=== PATIENT | female | born 1995 | race Caucasian/White ===

== ENCOUNTER → 2017-10-07 15:42 | Outpatient (REF) | payer OTHER, SELFPAY | LOC: LAB 15:42 | PROVIDERS: Visit Provider Nurse Practitioner Family | DX: R10.9 Unspecified abdominal pain (principal) | CPT/HCPCS: 87086 ==

== ENCOUNTER 2017-10-08 05:23 | Emergency (ER) | payer OTHER, SELFPAY ==
[2017-10-08 05:31] VITALS: BP 133/78; PULSE 113; RESP 20; TEMP 36.6; O2SAT 97; BMI 34.7
--- NOTE | 2017-10-08 05:42 | XR_ITS ---
XR hand LT min 3V HISTORY: Posttraumatic pain ITS.REASON: S/P FALL ORDERING PHYSICIAN: Cooper Donato MD PATIENT AGE: 22 years COMPARISON: 06/13/2012 FINDINGS: There are 2 screws present in the mid to distal aspect of the proximal phalanx of the fifth finger from an old fracture. No acute fracture or dislocation evident. IMPRESSION: No acute fracture. Prior ORIF fifth finger
--- NOTE | 2017-10-08 06:24 | HMH.EDGENADL ---
ED Disposition Clinical Impression: Contusion of left hand Qualifiers: Encounter type: initial encounter Qualified Code(s): S60.222A - Contusion of left hand, initial encounter Disposition: Home, Self-Care Condition on Discharge: Good Instructions: DI for Hand Injury Additional Instructions: advil/tyenol and ice and follow up with pcp Referrals: Corina Piper APRN [Primary Care Provider] - - Critical Care Critical Care Time: No Attestation: On 10/08/17, the high probability of a clinically significant, sudden or life threatening deterioration of the following system(s) required my full and direct attention, intervention and personal management. The time I documented below is in addition to time spent performing reported procedures but includes the following listed in this critical care notation. Medical Decision Making - Medical Records Medical records reviewed: Yes: I reviewed the patient's medical records. Vital Signs: 10/08/17 05:31 Temperature 97.9 F Temperature Source Oral Pulse Rate [Right Brachial] 113 H Respiratory Rate 20 Blood Pressure [Right Arm] 133/78 Blood Pressure Mean [Right Arm] 96 Blood Pressure Source [Right Arm] Automatic Cuff Blood Pressure Position [Right Arm] Sitting 02 Sat by Pulse Oximetry 97 Oxygen Delivery Method Room Air Orders (Tests/Meds): ED MEDICATIONS Discontinued Medications Generic Name Dose Route Start Last Admin Trade Name Freq PRN Reason Stop Dose Admin Ibuprofen 600 mg 10/08/17 05:42 10/08/17 05:44 Motrin 600mg Tablet PO 10/08/17 05:43 600 mg ONCE ONE Administration - Radiology Data #1 Image(s): Hand Image Reviewed: Yes I reviewed the patient's radiology image Preliminary Findings: No Fracture Seen - Rajesh Inquiry Pt receiving controlled substance: No General Adult HPI - General Chief complaint: PAIN Stated complaint: A/O pinky lft hand Time Seen by Provider: 10/08/17 06:25 Mode of Arrival: Family Vehicle Source of Information: Patient, Medical Record Limitations: No Limitations Description of Symptoms (Recalled from ER Triage Doc. by RN): S/P FALL C/O LEFT HAND PAIN. HX FX LEFT PINKY FINGER WITH PLATE AND SCREWS INSERTED - History of Present Illness HPI narrative: trip type fall and injured lt hand with hx of prev orif of lt fifth finger Onset (ago): hour(s) Location: upper extremity Severity: moderate - Related Data Home Medications Medication Instructions Recorded Confirmed No Known Home Medications [No 10/07/17 10/08/17 Known Home Medications] Allergies Allergy/AdvReac Type Severity Reaction Status Date / Time amoxicillin [AMOXICILLIN] Allergy Intermediate I-HIVES Verified 10/07/17 15:38 [facility] History I have reviewed the patient's past medical history: Yes Medical History: Denies:: Cancer, Diabetes Mellitus Type 1, Diabetes Mellitus Type 2, MRSA Laterality Cases: Left: Other Amputation: No Fractures: Yes (LEFT PINKY FINGER) - *Social History Educational Level: Completed High School Smoking Status: Never smoker Alcohol Intake: never - Psychiatric History Expresses thoughts of harming self/others: None Suicide Plan Description: No Plan ROS Obtained: Yes All systems reviewed & no additional complaints - Constitutional Constitutional: Denies fever(s) - Eyes Eyes: Denies change in vision - ENT Ears, Nose, Mouth, and Throat: Denies sore throat - Cardiovascular Cardiovascular: Denies chest pain at rest - Respiratory Respiratory: No cough - Gastrointestinal Gastrointestingal: Denies: abdominal pain - Musculoskeletal Musculoskeletal: Reports joint pain, Reports joint swelling - Integumentary/Breasts Skin/Breast: Denies rash - Neurologic Neurologic: Denies seizure-like activity Physical Exam - General General appearance: alert, in no apparent distress - Head Head exam: atraumatic - Eye Eye exam: Present: PERRL, EOMI - ENT ENT exam: Prese
--- NOTE | 2017-10-08 06:28 | ED_ITS ---
ED Disposition Clinical Impression: Contusion of left hand Qualifiers: Encounter type: initial encounter Qualified Code(s): S60.222A - Contusion of left hand, initial encounter Disposition: Home, Self-Care Condition on Discharge: Good Instructions: DI for Hand Injury Additional Instructions: advil/tyenol and ice and follow up with pcp Referrals: Corina Piper APRN [Primary Care Provider] - - Critical Care Critical Care Time: No Attestation: On 10/08/17, the high probability of a clinically significant, sudden or life threatening deterioration of the following system(s) required my full and direct attention, intervention and personal management. The time I documented below is in addition to time spent performing reported procedures but includes the following listed in this critical care notation. Medical Decision Making - Medical Records Medical records reviewed: Yes: I reviewed the patient's medical records. Vital Signs: 10/08/17 05:31 Temperature 97.9 F Temperature Source Oral Pulse Rate [Right Brachial] 113 H Respiratory Rate 20 Blood Pressure [Right Arm] 133/78 Blood Pressure Mean [Right Arm] 96 Blood Pressure Source [Right Arm] Automatic Cuff Blood Pressure Position [Right Arm] Sitting 02 Sat by Pulse Oximetry 97 Oxygen Delivery Method Room Air Orders (Tests/Meds): ED MEDICATIONS Discontinued Medications Generic Name Dose Route Start Last Admin Trade Name Freq PRN Reason Stop Dose Admin Ibuprofen 600 mg 10/08/17 05:42 10/08/17 05:44 Motrin 600mg Tablet PO 10/08/17 05:43 600 mg ONCE ONE Administration - Radiology Data #1 Image(s): Hand Image Reviewed: Yes I reviewed the patient's radiology image Preliminary Findings: No Fracture Seen - Rajesh Inquiry Pt receiving controlled substance: No General Adult HPI - General Chief complaint: PAIN Stated complaint: A/O pinky lft hand Time Seen by Provider: 10/08/17 06:25 Mode of Arrival: Family Vehicle Source of Information: Patient, Medical Record Limitations: No Limitations Description of Symptoms (Recalled from ER Triage Doc. by RN): S/P FALL C/O LEFT HAND PAIN. HX FX LEFT PINKY FINGER WITH PLATE AND SCREWS INSERTED - History of Present Illness HPI narrative: trip type fall and injured lt hand with hx of prev orif of lt fifth finger Onset (ago): hour(s) Location: upper extremity Severity: moderate - Related Data Home Medications Medication Instructions Recorded Confirmed No Known Home Medications [No 10/07/17 10/08/17 Known Home Medications] Allergies Allergy/AdvReac Type Severity Reaction Status Date / Time amoxicillin [AMOXICILLIN] Allergy Intermediate I-HIVES Verified 10/07/17 15:38 [facility] History I have reviewed the patient's past medical history: Yes Medical History: Denies:: Cancer, Diabetes Mellitus Type 1, Diabetes Mellitus Type 2, MRSA Laterality Cases: Left: Other Amputation: No Fractures: Yes (LEFT PINKY FINGER) - *Social History Educational Level: Completed High School Smoking Status: Never smoker Alcohol Intake: never - Psychiatric History Expresses thoughts of harming self/others: None Suicide Plan Description: No Plan ROS Obtained: Yes All systems reviewed & no additiona
[2017-10-08 06:55] VITALS: BP 132/65; PULSE 99; RESP 18; O2SAT 97
== END 2017-10-08 06:57 | disposition home or self-care (01) ==
PROVIDERS: Emergency Provider Emergency Medicine; Family Provider Nurse Practitioner Family; PCP Nurse Practitioner Family
DX: S60.222A Contusion of left hand, initial encounter (principal); Z88.1 Allergy status to other antibiotic agents; W01.0XXA Fall on same level from slipping, tripping and stumbling without subsequent striking against object, initial encounter; Y92.019 Unspecified place in single-family (private) house as the place of occurrence of the external cause
CPT/HCPCS: 73130; 99282

== ENCOUNTER → 2017-11-22 15:23 | Outpatient (CLI) | payer OTHER, SELFPAY ==
--- NOTE | 2017-11-22 15:24 | XR_ITS ---
XR foot LT min 3V Ordering Physician: Nena Figueroa DPM Patient Age: 22 years: Female HISTORY: Bilateral foot pain TECHNIQUE Left foot [3 views standing weightbearing COMPARISON: Right foot from today a left great toe from 03/29/2016 LEFT FOOT 3 VIEWS STANDING COMPARISON: None FINDINGS: Weightbearing views are performed. - , little if any hallux valgus on left. It. The first metatarsal phalangeal angle of 17 degrees. . The subtle minor hallux valgus slight more evident on the right than left . There is mild pes planus with aMearys angle of negative ~on sagittal images. No fracture or dislocation. No lytic or blastic change. There is normal mineralization.. The joint spaces are well-preserved. No significant degenerative/arthritic changes. No erosive changes evident. IMPRESSION:======== Mild pes planus Borderline hallux valgus left
--- NOTE | 2017-11-22 15:24 | XR_ITS ---
XR foot RT min 3V HISTORY: Bilateral foot pain, right foot pain ORDERING PHYSICIAN: Nena Figueroa DPM PATIENT AGE: 22 years COMPARISON: None FINDINGS: Weightbearing views are performed. There is mild hallux valgus with first metatarsophalangeal angle of 22 degrees. There is mild pes planus with a Mearys angle of negative 12 degrees No fracture or dislocation. No lytic or blastic change. There is normal mineralization.. The joint spaces are well-preserved. No significant degenerative/arthritic changes. No erosive changes evident. IMPRESSION: Mild pes planus and hallux valgus
== END ==
PROVIDERS: Visit Provider Podiatrist
DX: B35.1 Tinea unguium (principal)
CPT/HCPCS: 73630; 87102; 87206; 87220

== ENCOUNTER → 2017-11-26 16:52 | Outpatient (CLI) | payer OTHER, SELFPAY ==
[2017-11-28 11:08] LABS: Hep A Ab, IgM Negative (Negative); Hepatitis B Core Antibody IgM Negative (Negative); Hepatitis B Surface Antigen Negative (Negative)
[2017-11-28 18:50] LABS: Hepatitis C Antibody <0.1 s/co ratio (0.0-0.9)
== END ==
PROVIDERS: Visit Provider Emergency Medicine
DX: Z20.5 Contact with and (suspected) exposure to viral hepatitis (principal)
CPT/HCPCS: 80074

== ENCOUNTER 2017-12-13 10:30 | Emergency (ER) | payer OTHER, SELFPAY ==
[2017-12-13 10:40] VITALS: BP 121/73; PULSE 107; RESP 20; TEMP 36.9; O2SAT 97; BMI 32.9
--- NOTE | 2017-12-13 11:16 | HMH.EDUTC ---
[facility] Disposition Clinical Impression: Viral gastroenteritis Disposition: Home, Self-Care Condition on Discharge: Good Instructions: DI for Viral Gastroenteritis -- Adult Additional Instructions: * Monitor Temp. Seek treatment if fever develops. * Follow up immediately for new or worsening symptoms OR no noticeable improvement over the next 48 hours. * Increase fluids. Water, gatorade, powerade, juice OR pedialyte with limited formula/dairy in children. * No food is ok as long as you or your child is drinking. Once ready to eat, start bland. bananas, rice, applesauce, toast * Probiotics if frequent diarrhea present may help. These are over the counter. * Contagious until no diarrhea, vomiting, fever x 24 hours without medication * Avoid anti-diarrheals unless told otherwise. Best to let the virus run its course. * phenergan every 6-8 hours as needed for nausea/vomiting. REMEMBER you had a shot of this here in clinic so DO NOT repeat too soon Prescriptions: Promethazine HCl [Phenergan 25mg tab] 25 mg PO Q6H PRN #10 tab PRN Reason: Nausea And Vomiting Referrals: Corina Piper APRN [Primary Care Provider] - (Follow up IMMEDIATELY for new or worsening symptoms OR no noticeable improvement over the next 48 hours.) Forms: Work/School Release Time of Disposition: 12:29 Medical Decision Making - Rajesh Inquiry Pt receiving controlled substance: No Vital Signs: 12/13/17 10:40 Temperature 98.5 F Temperature Source Oral Pulse Rate [Right Brachial] 107 H Respiratory Rate 20 Blood Pressure [Right Arm] 121/73 Blood Pressure Mean [Right Arm] 89 Blood Pressure Source [Right Arm] Automatic Cuff Blood Pressure Position [Right Arm] Sitting 02 Sat by Pulse Oximetry 97 Oxygen Delivery Method Room Air - Lab Data Lab Results 12/13/17 11:26: [facility] Negative 12/13/17 11:37: Urine Color Yellow, Urine Appearance Clear, Urine pH 5.0, Ur Specific [place] 1.030, Urine Protein Trace, Urine Glucose (UA) Negative, Urine Ketones Negative, Urine Blood Negative, Urine Nitrate Negative, Urine Bilirubin Negative, Urine Urobilinogen 0.2, Ur Leukocyte Esterase Negative Orders (Tests/Meds): ED MEDICATIONS Discontinued Medications Generic Name Dose Route Start Last Admin Trade Name Freq PRN Reason Stop Dose Admin Ondansetron HCl 4 mg 04/02/18 11:30 12/13/17 11:34 Zofran 4mg/2ml Vial IM 12/13/17 11:31 4 mg ONCE ONE Administration Promethazine HCl 25 mg 12/13/17 12:04 12/13/17 12:09 Phenergan 25mg/Ml 1ml Vial IM 12/13/17 12:05 25 mg ONCE ONE Administration - Reevaluation(s) Time: 12:03 Reevaluation #1: Zofran hasn't helped. Actively vomiting. Mother in waiting room. Agrees to sign pt out and drive her home. Discussed promethazine. Pt agreeable. 1226: Feeling better since promethazine. No longer vomiting. Nausea improved. Tolerating fluids. Rvwd POC again and agrees to FU if no improvement. [facility] HPI - General Stated complaint: vomiting,diarrhea Time Seen by Provider: 12/13/17 10:55 Mode of Arrival: Family Vehicle Source of Information: Patient Limitations: No Limitations Description of Symptoms (Recalled from Triage Doc. by RN): C/O N/V/D HEENT Symptoms (Recalled from RN notes): No Resp Symptoms (Recalled from RN notes): No Skin Symptoms (Recalled from RN notes): No MS Symptoms (Recalled from RN notes): No Functional Status (Recalled from RN notes): N/A - History of Present Illness Provider Complaint: c/o fever, vomiting and diarrhea since yesterday. Fever 100 at work this morning. Was sent home. Reports has vomited 3 times today. No blood or coffee ground like appearance. Diarrhea approx 6 times. Watery. No blood and not black/tarry. Hasn't taken or tried anything for symptoms. Reports several residence w/ similar symptoms. - Related Data Previous Rx's Medication Instructions Recorded ciclopirox 0.77 % topical gel 1 applic TOPICAL BID 28 Days #30 g 11/22/17 P
--- NOTE | 2017-12-13 11:26 | ED_ITS ---
[facility] [place] Disposition Clinical Impression: Viral gastroenteritis Disposition: Home, Self-Care Condition on Discharge: Good Instructions: DI for Viral Gastroenteritis -- Adult Additional Instructions: * Monitor Temp. Seek treatment if fever develops. * Follow up immediately for new or worsening symptoms OR no noticeable improvement over the next 48 hours. * Increase fluids. Water, gatorade, powerade, juice OR pedialyte with limited formula/dairy in children. * No food is ok as long as you or your child is drinking. Once ready to eat, start bland. bananas, rice, applesauce, toast * Probiotics if frequent diarrhea present may help. These are over the counter. * Contagious until no diarrhea, vomiting, fever x 24 hours without medication * Avoid anti-diarrheals unless told otherwise. Best to let the virus run its course. * phenergan every 6-8 hours as needed for nausea/vomiting. REMEMBER you had a shot of this here in clinic so DO NOT repeat too soon Prescriptions: Promethazine HCl [Phenergan 25mg tab] 25 mg PO Q6H PRN #10 tab PRN Reason: Nausea And Vomiting Referrals: Corina Piper APRN [Primary Care Provider] - (Follow up IMMEDIATELY for new or worsening symptoms OR no noticeable improvement over the next 48 hours.) Forms: Work/School Release Time of Disposition: 12:29 Medical Decision Making - Rajesh Inquiry Pt receiving controlled substance: No Vital Signs: 12/13/17 10:40 Temperature 98.5 F Temperature Source Oral Pulse Rate [Right Brachial] 107 H Respiratory Rate 20 Blood Pressure [Right Arm] 121/73 Blood Pressure Mean [Right Arm] 89 Blood Pressure Source [Right Arm] Automatic Cuff Blood Pressure Position [Right Arm] Sitting 02 Sat by Pulse Oximetry 97 Oxygen Delivery Method Room Air - Lab Data Lab Results 12/13/17 11:26: [facility] Negative 12/13/17 11:37: Urine Color Yellow, Urine Appearance Clear, Urine pH 5.0, Ur Specific [place] 1.030, Urine Protein Trace, Urine Glucose (UA) Negative, Urine Ketones Negative, Urine Blood Negative, Urine Nitrate Negative, Urine Bilirubin Negative, Urine Urobilinogen 0.2, Ur Leukocyte Esterase Negative Orders (Tests/Meds): ED MEDICATIONS Discontinued Medications Generic Name Dose Route Start Last Admin Trade Name Freq PRN Reason Stop Dose Admin Ondansetron HCl 4 mg 04/02/18 11:30 12/13/17 11:34 Zofran 4mg/2ml Vial IM 12/13/17 11:31 4 mg ONCE ONE Administration Promethazine HCl 25 mg 12/13/17 12:04 12/13/17 12:09 Phenergan 25mg/Ml 1ml Vial IM 12/13/17 12:05 25 mg ONCE ONE Administration - Reevaluation(s) Time: 12:03 Reevaluation #1: Zofran hasn't helped. Actively vomiting. Mother in waiting room. Agrees to sign pt out and drive her home. Discussed promethazine. Pt agreeable. 1226: Feeling better since promethazine. No longer vomiting. Nausea improved. Tolerating fluids. Rvwd POC again and agrees to FU if no improvement. [facility] HPI - General Stated complaint: vomiting,diarrhea Time Seen by Provider: 12/13/17 10:55 Mode of Arrival: Family Vehicle Source of Information: Patient Limitations: No Limitations Description of Symptoms (Recalled from Triage Doc. by RN): C/O N/V/D HEENT Symptoms (Recalled from RN notes): No Resp Symptoms (Recalled from RN notes): No Skin Symptoms (Recalled from RN notes): No MS Symptoms (Recalled from RN notes): No
[2017-12-13 11:35] LABS: UTC Pregnancy Test, Urine Negative (Negative)
[2017-12-13 11:38] LABS: Apearance,Urine Clear (Clear); Bilirubin,Urine Negative (Negative); Blood, Urine Negative (Negative); Color,Urine Yellow (Yellow); Glucose,Urine (UA) Negative (Negative); Ketones,Urine Negative (Negative); Protein,Urine Trace (Negative); UTC Leukocyte Esterase,Urine Negative (Negative); UTC Nitrate,Urine Negative (Negative); Urobilinogen,Urine 0.2 EU/dl (0.2)
[2017-12-13 12:30] VITALS: BP 118/70; PULSE 100; RESP 20; TEMP 37; O2SAT 98
== END 2017-12-13 12:33 | disposition home or self-care (01) ==
PROVIDERS: Emergency Provider Nurse Practitioner Family; Family Provider Nurse Practitioner Family; PCP Nurse Practitioner Family
DX: A08.4 Viral intestinal infection, unspecified (principal); Z88.1 Allergy status to other antibiotic agents
CPT/HCPCS: 81003; 81025; 96372; 99201; J2405

== ENCOUNTER → 2019-06-17 13:57 | Outpatient (CLI) | payer OTHER, SELFPAY | PROVIDERS: PCP Nurse Practitioner Family; Visit Provider Emergency Medicine | DX: S81.802A Unspecified open wound, left lower leg, initial encounter (principal); W55.51XA Bitten by raccoon, initial encounter | CPT/HCPCS: 90675; 96372 ==

== ENCOUNTER 2020-02-13 13:12 | Emergency (ER) | payer OTHER, SELFPAY ==
--- NOTE | 2020-02-13 13:31 | HMH.EDGENADL ---
ED Disposition Clinical Impression: Strep tonsillitis Disposition: Home, Self-Care Condition on Discharge: Good Instructions: DI for Strep Throat Additional Instructions: Z-Balbir as prescribed. Tylenol for pain and fever. Off work for 2 days. Prescriptions: Azithromycin [Zithromax 250mg tab] 250 mg PO DIRECTED #6 tab Transmission Status: Sent to [facility] #[id number] Referrals: Corina Piper APRN [Primary Care Provider] - Forms: Work/School Release - Critical Care Critical Care Time: No Attestation: On 02/13/20, the high probability of a clinically significant, sudden or life threatening deterioration of the following system(s) required my full and direct attention, intervention and personal management. The time I documented below is in addition to time spent performing reported procedures but includes the following listed in this critical care notation. Medical Decision Making - Rajesh Inquiry Pt receiving controlled substance: No Vital Signs: 02/13/20 13:35 02/13/20 13:47 Temperature 99.0 F Temperature Source Oral Pulse Rate [Right Brachial] 93 H 98 H Respiratory Rate 18 Blood Pressure [Right Arm] 135/82 141/68 H Blood Pressure Mean [Right Arm] 99 92 Blood Pressure Source [Right Arm] Automatic Cuff Automatic Cuff Blood Pressure Position [Right Arm] Sitting Sitting 02 Sat by Pulse Oximetry 96 96 Oxygen Delivery Method Room Air Room Air - Lab Data Lab Results 02/13/20 13:30: WBC 3.5 L, RBC 5.05, Hgb 14.1, Hct 41.3, MCV 81.9, MCH 27.9, MCHC 34.0, RDW 13.6, Plt Count 199, MPV 8.8, Neut % (Auto) 36.4 L, Lymph % (Auto) 53.9 H, [place] % (Auto) 8.1, Eos % (Auto) 0.8, Baso % (Auto) 0.8, Neut # (Auto) 1.3 L, Lymph # (Auto) 1.9, [place] # (Auto) 0.3, Eos # (Auto) 0.0, Baso # (Auto) 0.0 02/13/20 13:30: Sodium 137, Potassium 3.5, Chloride 103, Carbon Dioxide 27, Anion Gap 10.5, BUN 11, Creatinine 0.70, Estimated Creat Clear 113, Estimated GFR 105, Est GFR ( Amer) 127, Glucose 91, Calcium 9.0, Total Bilirubin 0.2, AST 41 H, ALT 46, Alkaline Phosphatase 92, Total Protein 8.0, Albumin 4.6, Globulin 3.4 H, Albumin/Globulin Ratio 1.4 02/13/20 13:30: Group A Strep Rapid Positive A 02/13/20 13:30: SARS-CoV-2 IgG Ab (Rapid) Negative, SARS-CoV-2 IgM Ab (Rapid) Negative Result diagrams: 02/13/20 13:30 02/13/20 13:30 Orders (Tests/Meds): ED MEDICATIONS Discontinued Medications Generic Name Dose Route Start Last Admin Trade Name Freq PRN Reason Stop Dose Admin Acetaminophen 1,000 mg 02/13/20 13:50 02/13/20 14:22 Tylenol 500mg Tablet PO 02/13/20 13:51 1,000 mg ONCE ONE Administration ORDERS Category Date Time Status Complete Blood Count Auto Diff Stat Lab 02/13/20 13:30 Results SARS-CoV-2, MARKY Stat Lab 02/13/20 13:35 Received General Adult HPI - General Stated complaint: cough soa was tested for covid negative Time Seen by Provider: 02/13/20 13:50 - History of Present Illness HPI narrative: 2-day history of cough, shortness of breath, sore throat, body aches, low-grade temp of 99.9. The patient works at [employer] home, where there have been multiple cases of COVID-19. She was tested last week and her swab was negative. - Related Data Previous Rx's Medication Instructions Recorded Brompheniramine/Pseudoephed/Dm 5 ml PO Q6HP PRN #240 syrup 06/28/19 [Bromfed Dm Cough Syrup] Cefdinir [Omnicef 300mg Capsule] 300 mg PO BID 10 Days #20 cap 06/28/19 Ciprofloxacin HCl [Ciprofloxacin 0.25 ml EAR-RIGHT BID 7 Days #1 06/28/19 0.2% Otic Soln] bottle predniSONE [Prednisone 20mg 20 mg PO BID 4 Days #8 tab 06/28/19 Tab] Azithromycin [Zithromax 250mg 250 mg PO DIRECTED #6 tab 02/13/20 tab] Allergies Allergy/AdvReac Type Severity Reaction Status Date / Time amoxicillin [AMOXICILLIN] Allergy Intermediate I-HIVES Verified 07/21/18 10:56 [facility] History - Hepatitis A Screen Attestation statement:: This patient has been scre
--- NOTE | 2020-02-13 13:33 | PC.NURSE ---
Lab here to swab pt.
[2020-02-13 13:35] VITALS: BP 135/82; PULSE 93; RESP 18; TEMP 37.2; O2SAT 96; BMI 80.6
--- NOTE | 2020-02-13 13:40 | XR_ITS ---
PROCEDURE: XR CHEST 2V CLINICAL HISTORY: SOA; cough COMPARISON: CXR CHEST(2 VIEWS-NOT PORTABLE) from 10/28/2015 CXR CHEST(2 VIEWS-NOT PORTABLE) from 09/23/2016 FINDINGS: The cardiomediastinal silhouette and pulmonary vascularity are within normal limits. The lungs are clear without infiltrates, suspicious nodules, or pleural effusions. No acute bony abnormalities. IMPRESSION: No acute findings. Dictated by: Ronnie Hardy MD 02/13/2020 14:06 Electronically signed by Ronnie Hardy MD in [place] 02/13/2020 14:06
--- NOTE | 2020-02-13 13:45 | PC.NURSE ---
pt placed in precautions for covid. door closed, isolation signs hung and pt given call [place].
[2020-02-13 13:47] VITALS: BP 141/68; PULSE 98; O2SAT 96
[2020-02-13 13:59] LABS: Strep Scrn Group A (Rapid) Positive (Negative)
[2020-02-13 14:02] LABS: Alanine Aminotransferase 46 U/L (12-78); Albumin Level 4.6 g/dl (3.5-5.0); Albumin/Globulin Ratio 1.4 (1.1-1.8); Alkaline Phosphatase 92 U/L (38-126); Anion Gap 10.5 mEq/L (5-15); Aspartate Amino Transferase 41 U/L (14-36); Bilirubin,Total 0.2 mg/dl (0.2-1.3); Blood Urea Nitrogen 11 mg/dl (7-17); Carbon Dioxide 27 mmol/L (22.0-30.0); Chloride 103 mmol/L (98-107); Creatinine Clearance Estimated 113 mL/min (50-200); Estimated Glomerular Filt Rate 105 ml/min (>60); GFR (African American) 127 ML/MIN (>60); Globulin 3.4 g/dL (1.3-3.2); Glucose 91 mg/dl (74-100); Potassium 3.5 mmoL/L (3.5-5.1); Sodium 137 mmol/L (136-145)
[2020-02-13 14:09] LABS: Basophils % 0.8 % (0.1-2.0); Eosinophils % 0.8 % (0.1-12.0); Hematocrit 41.3 % (37.0-47.0); Hemoglobin 14.1 g/dL (12.2-16.2); Lymphocytes # 1.9 K/mm3 (0.7-4.5); Lymphocytes % 53.9 % (10-50); Mean Corpuscular Hemoglobin 27.9 pg (27.0-31.2); Mean Corpuscular Volume 81.9 fl (81-99); Mean Platelet Volume 8.8 fl (7.4-10.4); Monocytes # 0.3 K/mm3 (0.1-1.0); Monocytes % 8.1 % (1.7-9.3); Neutrophils # 1.3 K/mm3 (1.8-7.8); Neutrophils % 36.4 % (37.0-80.0); Platelet Count 199 K/mm3 (142-424); Red Blood Count 5.05 M/mm3 (4.20-5.40); Red Cell Distribution Width 13.6 % (11.5-17.5); White Blood Count 3.5 K/mm3 (4.8-10.8)
[2020-02-13 14:13] LABS: MANUAL DIFFERENTIAL MANUAL DIFFERENTIAL (MANUAL DIFF)
[2020-02-13 14:24] LABS: Coronavirus 19 IgG Antibody Negative (Negative); Coronavirus 19 IgM Antibody Negative (Negative)
[2020-02-13 14:36] VITALS: BP 141/68; PULSE 98; RESP 18; TEMP 37.2; O2SAT 96
[2020-02-13 14:52] LABS: Lymphocytes % 49 % (10-50); Monocytes % 11 % (2-9); Neutrophils % 40 % (42-76); Platelet Estimate Normal; RBC Morphology Normal; Total Cells Counted 100
[2020-02-14 13:59] LABS: Covid-19 Nasal PCR Sendout Lex DETECTED
== END 2020-02-13 14:44 | disposition home or self-care (01) ==
PROVIDERS: Emergency Provider Emergency Medicine; PCP Nurse Practitioner Family
DX: J03.90 Acute tonsillitis, unspecified (principal); Z88.1 Allergy status to other antibiotic agents
CPT/HCPCS: 71046; 80053; 85007; 85025; 86328; 87430; 99283; U0004

== ENCOUNTER 2020-02-18 18:47 | Emergency (ER) | payer OTHER, SELFPAY ==
[2020-02-18 18:56] VITALS: BP 163/92; PULSE 101; RESP 16; TEMP 37; O2SAT 98; BMI 32.9
--- NOTE | 2020-02-18 19:01 | HMH.EDGENADL ---
ED Disposition Clinical Impression: Viral syndrome, Malaise, Cough Pharyngitis Qualifiers: Pharyngitis/tonsillitis etiology: other specified organisms Qualified Code(s): J02.8 - Acute pharyngitis due to other specified organisms Disposition: Home, Self-Care Condition on Discharge: Good Instructions: DI for Viral Syndrome Additional Instructions: Consider using nutritional shakes such as Ensure to help maintain your nutrition. Drink plenty of water, juice, Gatorade to stay well-hydrated. Return to the emergency department for any acute new concerns. Referrals: Corina Piper APRN [Primary Care Provider] - 3 days - Critical Care Critical Care Time: No Attestation: On 02/18/20, the high probability of a clinically significant, sudden or life threatening deterioration of the following system(s) required my full and direct attention, intervention and personal management. The time I documented below is in addition to time spent performing reported procedures but includes the following listed in this critical care notation. Medical Decision Making - Medical Records Medical records reviewed: Yes: I reviewed the patient's medical records. - Rajesh Inquiry Pt receiving controlled substance: No Vital Signs: 02/18/20 18:56 Temperature 98.6 F Temperature Source Oral Pulse Rate [Left Radial] 101 H Respiratory Rate 16 Blood Pressure [Right Arm] 163/92 H Blood Pressure Mean [Right Arm] 115 Blood Pressure Position [Right Arm] Sitting 02 Sat by Pulse Oximetry 98 Oxygen Delivery Method Room Air Medical Decision Narrative: Patient with generalized malaise, is known to be COVID positive. She is tolerating fluids and solids, but solids are difficult because of her sore throat. She is not vomiting. She has no respiratory distress. In the interest of limiting exposures and patient's benign physical exam, no respiratory distress I will not repeat chest x-ray at this time. Is tolerating p.o. and I have encouraged plenty of fluids, Gatorade/Powerade and nutrition shakes to help with her nutrition status. No hypotension that would suggest sepsis, significant dehydration. Oxygen saturations appropriate on room air. She does have some pharyngitis, no signs of peritonsillar abscess. Widely patent airway. Discharged home with advised to return for any worsening symptoms. General Adult HPI - General Chief complaint: Weakness Stated complaint: Tested positive for COVD coughing, sore throat Time Seen by Provider: 02/18/20 19:01 Mode of Arrival: Ambulatory Limitations: No Limitations Description of Symptoms (Recalled from ER Triage Doc. by RN): to ed per pvt car pt tested + for covid19 02/12 pt states she feels worse with body aches, sorethroat dizziness, no taste, no smell. pt denies any sob. pt tearful. - History of Present Illness HPI narrative: This is a 24-year-old female who presents to the emergency department for generalized fatigue, muscle aches, sore throat and dry cough worsening over the last 5 days. She tested positive for COVID on 02/13/2020. She works at [employer]. No vomiting. She does have several loose bowel movements daily. She is tolerating water without difficulty. She has been using ibuprofen and Tylenol. No difficulty breathing. - Related Data Previous Rx's Medication Instructions Recorded Brompheniramine/Pseudoephed/Dm 5 ml PO Q6HP PRN #240 syrup 06/28/19 [Bromfed Dm Cough Syrup] Cefdinir [Omnicef 300mg Capsule] 300 mg PO BID 10 Days #20 cap 06/28/19 Ciprofloxacin HCl [Ciprofloxacin 0.25 ml EAR-RIGHT BID 7 Days #1 06/28/19 0.2% Otic Soln] bottle predniSONE [Prednisone 20mg 20 mg PO BID 4 Days #8 tab 06/28/19 Tab] Azithromycin [Zithromax 250mg 250 mg PO DIRECTED #6 tab 02/13/20 tab] Allergies Allergy/AdvReac Type Severity Reaction Status Date / Time amoxicillin [AMOXICILLIN] Allergy Intermediate I-HIVES Verified 07/21/18 10:56 [facility] History - Hep
[2020-02-18 19:11] VITALS: BP 133/74; PULSE 74; RESP 16; TEMP 36.6; O2SAT 98
== END 2020-02-18 19:12 | disposition home or self-care (01) ==
PROVIDERS: Emergency Provider Emergency Medicine; PCP Nurse Practitioner Family
DX: B34.9 Viral infection, unspecified (principal); J02.8 Acute pharyngitis due to other specified organisms; U07.1 COVID-19; R05 Cough; R53.1 Weakness
CPT/HCPCS: 99281

== ENCOUNTER → 2021-10-17 11:58 | Outpatient (CLI) | payer OTHER, SELFPAY | PROVIDERS: PCP Nurse Practitioner Family; Visit Provider Nurse Practitioner | DX: Z20.822 Contact with and (suspected) exposure to COVID-19 (principal) | CPT/HCPCS: C9803; U0003; U0005 ==

== ENCOUNTER 2021-11-29 10:47 | Emergency (ER) | payer OTHER, SELFPAY ==
[2021-11-29] VITALS (11 sets, daily range): BP systolic 101–126; BP diastolic 53–86; PULSE 105–130; RESP 15–19; TEMP 36.7–37.1; O2SAT 96–100; BMI 32.9
--- NOTE | 2021-11-29 10:56 | PC.NURSE ---
PT to restroom for UA
[2021-11-29 11:06] LABS: Microscopic, Urine URINE MICROSCOPIC (MICROSCOPIC)
[2021-11-29 11:07] LABS: Appearance,Urine CLEAR (Clear); Bilirubin,Urine Negative (Negative); Blood, Urine Negative (Negative); Color,Urine YELLOW (Yellow); Glucose,Urine (UA) Negative (Negative); Ketones,Urine 1+ (Negative); Leukocyte Esterase,Urine Negative (Negative); Nitrate,Urine Negative (Negative); PH,Urine 7.5 (5.0-8.5); Protein,Urine Negative (Negative); Urobilinogen,Urine 0.2 EU/dl (0.2)
--- NOTE | 2021-11-29 11:23 | HMH.EDGENADL ---
ED Disposition Clinical Impression: Viral gastroenteritis Disposition: Home, Self-Care Condition on Discharge: Good Instructions: DI for Diarrhea and Traveler's Diarrhea -- Adult, DI for Diarrhea and Traveler's Diarrhea -- Child, DI for Nausea -- Adult, DI for Nausea -- Child Prescriptions: Ondansetron [Zofran 4mg ODT] 4 mg PO QID PRN 3 Days #12 tab PRN Reason: Nausea And Vomiting Transmission Status: Pending to [id number] Referrals: Corina Piper APRN [Primary Care Provider] - - Critical Care Critical Care Time: No Attestation: On 11/29/21, the high probability of a clinically significant, sudden or life threatening deterioration of the following system(s) required my full and direct attention, intervention and personal management. The time I documented below is in addition to time spent performing reported procedures but includes the following listed in this critical care notation. Medical Decision Making - Medical Records Medical records reviewed: Yes: I reviewed the patient's medical records. - Rajesh Inquiry Pt receiving controlled substance: No Vital Signs: 11/29/21 10:49 11/29/21 10:54 11/29/21 11:06 Temperature 98.1 F Temperature Source Oral Pulse Rate 127 H 125 H Pulse Rate [Right Radial] 130 H Respiratory Rate 19 16 16 Blood Pressure 126/82 122/86 Blood Pressure [Right Arm] 126/82 Blood Pressure Mean 93 98 Blood Pressure Mean [Right Arm] 96 Blood Pressure Source [Right Arm] Automatic Cuff Blood Pressure Position [Right Arm] Sitting 02 Sat by Pulse Oximetry 100 98 98 Oxygen Delivery Method Room Air 11/29/21 11:30 11/29/21 11:44 11/29/21 12:01 Temperature 98.8 F Temperature Source Oral Pulse Rate 109 H 107 H Pulse Rate [Right Radial] Respiratory Rate 16 15 Blood Pressure 106/60 L 101/53 L Blood Pressure [Right Arm] Blood Pressure Mean 75 69 Blood Pressure Mean [Right Arm] Blood Pressure Source [Right Arm] Blood Pressure Position [Right Arm] 02 Sat by Pulse Oximetry 98 98 Oxygen Delivery Method 11/29/21 12:30 11/29/21 13:01 11/29/21 13:30 Temperature Temperature Source Pulse Rate 105 H 113 H 114 H Pulse Rate [Right Radial] Respiratory Rate 16 16 17 Blood Pressure 111/60 103/53 L 115/58 L Blood Pressure [Right Arm] Blood Pressure Mean 77 78 77 Blood Pressure Mean [Right Arm] Blood Pressure Source [Right Arm] Blood Pressure Position [Right Arm] 02 Sat by Pulse Oximetry 98 97 96 Oxygen Delivery Method 11/29/21 14:00 Temperature Temperature Source Pulse Rate 110 H Pulse Rate [Right Radial] Respiratory Rate 16 Blood Pressure 111/63 Blood Pressure [Right Arm] Blood Pressure Mean 75 Blood Pressure Mean [Right Arm] Blood Pressure Source [Right Arm] Blood Pressure Position [Right Arm] 02 Sat by Pulse Oximetry 98 Oxygen Delivery Method - Lab Data Lab Results 11/29/21 10:58: Urine Color Yellow, Urine Appearance Clear, Urine pH 7.5, Ur Specific [place] 1.020, Urine Protein Negative, Urine Glucose (UA) Negative, Urine Ketones 1+, Urine Blood Negative, Urine Nitrate Negative, Urine Bilirubin Negative, Urine Urobilinogen 0.2, Ur Leukocyte Esterase Negative, Urine RBC Occasional, Urine WBC Occasional, Ur Squamous Epith Cells 3-5, Urine Bacteria Trace 11/29/21 11:20: WBC 8.1, RBC 5.13, Hgb 14.1, Hct 42.8, MCV 83.5, MCH 27.5, MCHC 33.0, RDW 15.0, Plt Count 217, MPV 10.5 H, Neut % (Auto) 90.9 H, Lymph % (Auto) 4.4 L, [place] % (Auto) 3.8, Eos % (Auto) 0.3, Baso % (Auto) 0.6, Neut # (Auto) 7.4, Lymph # (Auto) 0.4 L, [place] # (Auto) 0.3, Eos # (Auto) 0.0, Baso # (Auto) 0.0, Total Counted 100, Neutrophils % (Manual) 90 H, Lymphocytes % (Manual) 8 L, Monocytes % (Manual) 2, Platelet Estimate Normal, RBC Morphology Normal 11/29/21 11:20: Sodium 138, Potassium 3.9, Chloride 106, Carbon Dioxide 24, Anion Gap 11.9, BUN 10, Creatinine 0.70, Estimated Creat Clear 160, Estimated GFR 103, Est GFR ( Amer) 1
[2021-11-29 11:33] LABS: Basophils % 0.6 % (0.1-2.0); Eosinophils % 0.3 % (0.1-12.0); Hematocrit 42.8 % (37.0-47.0); Hemoglobin 14.1 g/dL (12.2-16.2); Lymphocytes # 0.4 K/mm3 (0.7-4.5); Lymphocytes % 4.4 % (10-50); Mean Corpuscular Hemoglobin 27.5 pg (27.0-31.2); Mean Corpuscular Volume 83.5 fl (81-99); Mean Platelet Volume 10.5 fl (7.4-10.4); Monocytes # 0.3 K/mm3 (0.1-1.0); Monocytes % 3.8 % (1.7-9.3); Neutrophils # 7.4 K/mm3 (1.8-7.8); Neutrophils % 90.9 % (37.0-80.0); Platelet Count 217 K/mm3 (142-424); Red Blood Count 5.13 M/mm3 (4.20-5.40); White Blood Count 8.1 K/mm3 (4.8-10.8)
[2021-11-29 11:37] LABS: Chloride 106 mmol/L (98-107); Sodium 138 mmol/L (136-145)
[2021-11-29 11:38] LABS: Potassium 3.9 mmoL/L (3.5-5.1)
[2021-11-29 11:40] LABS: Alanine Aminotransferase 28 U/L (12-78); Albumin Level 4.1 g/dl (3.5-5.0); Albumin/Globulin Ratio 1.3 (1.1-1.8); Alkaline Phosphatase 88 U/L (38-126); Anion Gap 11.9 mEq/L (5-15); Aspartate Amino Transferase 24 U/L (14-36); Bilirubin,Total 0.9 mg/dl (0.2-1.3); Blood Urea Nitrogen 10 mg/dl (7-17); Carbon Dioxide 24 mmol/L (22.0-30.0); Creatinine Clearance Estimated 160 mL/min (50-200); Estimated Glomerular Filt Rate 103 ml/min (>60); GFR (African American) 124 ML/MIN (>60); Globulin 3.1 g/dL (1.3-3.2); Glucose 110 mg/dl (74-100); Lipase 26 U/L (23-300); Total Protein,Serum 7.2 g/dl (6.3-8.2)
[2021-11-29 11:52] LABS: MANUAL DIFFERENTIAL MANUAL DIFFERENTIAL (MANUAL DIFF)
[2021-11-29 11:58] LABS: HCG Qualitative, Serum Negative (Negative)
[2021-11-29 11:59] LABS: RBC,Urine Occasional #/hpf (0-3); WBC,Urine Occasional #/hpf (0-3)
[2021-11-29 12:00] LABS: Bacteria,Urine Trace /lpf
[2021-11-29 12:21] LABS: Lymphocytes % 8 % (10-50); Monocytes % 2 % (2-9); Neutrophils % 90 % (42-76); Total Cells Counted 100
[2021-11-29 12:22] LABS: Platelet Estimate Normal
[2021-11-29 12:23] LABS: RBC Morphology Normal
--- NOTE | 2021-11-29 12:46 | PC.NURSE ---
Pt in room
== END 2021-11-29 14:35 | disposition home or self-care (01) ==
PROVIDERS: Emergency Provider Emergency Medicine; PCP Nurse Practitioner Family
DX: K52.9 Noninfective gastroenteritis and colitis, unspecified (principal)
CPT/HCPCS: 80053; 81001; 83690; 84703; 85007; 85025; 96360; 96365; 96375; J2405

== ENCOUNTER 2022-03-12 08:47 | Emergency (ER) | payer OTHER, SELFPAY ==
[2022-03-12] VITALS (11 sets, daily range): BP systolic 110–137; BP diastolic 61–98; PULSE 81–109; RESP 16–18; TEMP 36.8–36.9; O2SAT 96–100; BMI 32.9
--- NOTE | 2022-03-12 09:12 | PC.NURSE ---
PATIENT SENT TO ER PER Faisal CHAVARRIA APRN FOR FUTHER EVALUATION. REPORT GIVEN TO Jose Elias GUZMAN RN BY Faisal CHAVARRIA APRN
--- NOTE | 2022-03-12 09:21 | HMH.EDUTC ---
[facility] [place] Clinical Impression: Lumbar radiculopathy Disposition: Home, Self-Care Condition on Discharge: Good Instructions: DI for Lumbar Radiculopathy Additional Instructions: Prednisone as prescribed. [place] as needed for pain. See your physician as soon as possible for further evaluation. Return immediately if back pain becomes intolerable, or if fever, worsening numbness or weakness of your legs, loss of control of your bowels or bladder. Additional instructions for CONTROLLED SUBSTANCES: You have been prescribed a medication that is a controlled substance. Controlled substances include pain medications known as opiates and sedative nerve medications known as benzodiazepines. Tramadol, fioricet, and gabapentin are also controlled substances. Some common opiates include: Codeine (such as Tylenol #3) Hydrocodone (Vicodin, Lortab, Lorcet, [place]) Oxycodone (Percocet, Percodan, Oxycodone, Oxy IR) Some common benzodiazepines include: Diazepam (Valium) Lorazepam (Ativan) Alprazolam (Xanax) Clonazepam (Klonopin) Oxazepam (Serax) All of these controlled substances are highly addictive and frequently abused. Misuse can and frequently does lead to addiction as well as overdose and . Medication should be stored in a locked cabinet or other secure storage unit. Do not store the medication in a motor vehicle. Short term supplies, 3 days or less, are prescribed because of the highly addictive nature of the medication. Any of the controlled substance medication NOT taken should be disposed of properly and NOT SAVED. The recommended method of disposing of unused medications is: Place the medicines in a sealable plastic bag. If the medicine is a solid, crush it or add water to dissolve it. Add something undesirable (cat litter, coffee grounds, etc.) Dispose of sealed bag in household trash Do not flush or pour unused medicines down a sink or drain. Controlled substances should not be shared, given away or sold. Because of the addictive nature and frequent abuse, these medications are sometimes stolen. These medications should be kept in a safe place where they cannot be stolen. Do not keep them in your car or purse. Lost or stolen prescriptions for controlled substances WILL NOT BE REFILLED in this emergency department, regardless of whether a police report was filed. Prescriptions: Hydrocod/Acet 5/325 mg [[place] 5/325mg tablet] 1 tab PO Q6HP PRN #10 tab PRN Reason: Pain Transmission Status: Received by [facility] # predniSONE [Prednisone 20mg Tab] 20 mg PO BID #10 tab Transmission Status: Received by [facility] # Referrals: Corina Piper APRN [Primary Care Provider] - Forms: Work/School Release Medical Decision Making - Rajesh Inquiry Pt receiving controlled substance: No Rajesh was queried for this patient: No Vital Signs: 03/12/22 08:50 03/12/22 09:14 03/12/22 09:18 Temperature 98.2 F 98.4 F Temperature Source Oral Oral Pulse Rate Pulse Rate [Left Brachial] 102 H 109 H 104 H Respiratory Rate 18 18 Blood Pressure Blood Pressure [Left Arm] 137/98 H 123/78 123/78 Blood Pressure Mean [Left Arm] 111 93 93 Blood Pressure Source [Left Arm] Automatic Cuff Automatic Cuff Automatic Cuff Blood Pressure Position [Left Arm] Sitting Sitting Sitting 02 Sat by Pulse Oximetry 100 99 99 Oxygen Delivery Method Room Air Room Air Room Air 03/12/22 10:01 03/12/22 10:30 03/12/22 11:00 Temperature Temperature Source Pulse Rate Pulse Rate [Left Brachial] 86 88 81 Respiratory Rate 17 18 Blood Pressure Blood Pressure [Left Arm] 134/75 118/72 110/62 Blood Pressure Mean [Left Arm] 94 87 78 Blood Pressure Source [Left Arm] Blood Pressure Position [Left Arm] 02 Sat by Pulse Oximetry 96 99 98 Oxygen Delivery Method Room Air Room Air 03/12/22 11:30 03/12/22 12:00 03/12/22 12:30 Temperature Temperature Source
--- NOTE | 2022-03-12 09:42 | HMH.EDGENADL ---
ED Disposition Clinical Impression: Lumbar radiculopathy Disposition: Home, Self-Care Condition on Discharge: Good Instructions: DI for Lumbar Radiculopathy Additional Instructions: Prednisone as prescribed. [place] as needed for pain. See your physician as soon as possible for further evaluation. Return immediately if back pain becomes intolerable, or if fever, worsening numbness or weakness of your legs, loss of control of your bowels or bladder. Additional instructions for CONTROLLED SUBSTANCES: You have been prescribed a medication that is a controlled substance. Controlled substances include pain medications known as opiates and sedative nerve medications known as benzodiazepines. Tramadol, fioricet, and gabapentin are also controlled substances. Some common opiates include: Codeine (such as Tylenol #3) Hydrocodone (Vicodin, Lortab, Lorcet, [place]) Oxycodone (Percocet, Percodan, Oxycodone, Oxy IR) Some common benzodiazepines include: Diazepam (Valium) Lorazepam (Ativan) Alprazolam (Xanax) Clonazepam (Klonopin) Oxazepam (Serax) All of these controlled substances are highly addictive and frequently abused. Misuse can and frequently does lead to addiction as well as overdose and . Medication should be stored in a locked cabinet or other secure storage unit. Do not store the medication in a motor vehicle. Short term supplies, 3 days or less, are prescribed because of the highly addictive nature of the medication. Any of the controlled substance medication NOT taken should be disposed of properly and NOT SAVED. The recommended method of disposing of unused medications is: Place the medicines in a sealable plastic bag. If the medicine is a solid, crush it or add water to dissolve it. Add something undesirable (cat litter, coffee grounds, etc.) Dispose of sealed bag in household trash Do not flush or pour unused medicines down a sink or drain. Controlled substances should not be shared, given away or sold. Because of the addictive nature and frequent abuse, these medications are sometimes stolen. These medications should be kept in a safe place where they cannot be stolen. Do not keep them in your car or purse. Lost or stolen prescriptions for controlled substances WILL NOT BE REFILLED in this emergency department, regardless of whether a police report was filed. Prescriptions: Hydrocod/Acet 5/325 mg [[place] 5/325mg tablet] 1 tab PO Q6HP PRN #10 tab PRN Reason: Pain Transmission Status: Sent to [facility] # predniSONE [Prednisone 20mg Tab] 20 mg PO BID #10 tab Transmission Status: Pending to [facility] # Referrals: Corina Piper APRN [Primary Care Provider] - Forms: Work/School Release - Critical Care Critical Care Time: No Attestation: On 03/12/22, the high probability of a clinically significant, sudden or life threatening deterioration of the following system(s) required my full and direct attention, intervention and personal management. The time I documented below is in addition to time spent performing reported procedures but includes the following listed in this critical care notation. Medical Decision Making - Rajesh Inquiry Pt receiving controlled substance: Yes Rajesh was queried for this patient: Yes Risks and benefits of using a controlled substance: were discussed with pt by me Vital Signs: 03/12/22 08:50 03/12/22 09:14 03/12/22 09:18 Temperature 98.2 F 98.4 F Temperature Source Oral Oral Pulse Rate Pulse Rate [Left Brachial] 102 H 109 H 104 H Respiratory Rate 18 18 Blood Pressure Blood Pressure [Left Arm] 137/98 H 123/78 123/78 Blood Pressure Mean [Left Arm] 111 93 93 Blood Pressure Source [Left Arm] Automatic Cuff Automatic Cuff Automatic Cuff Blood Pressure Position [Left Arm] Sitting Sitting Sitting 02 Sat by Pulse Oximetry 100 99 99 Oxygen Delivery Method Room Air Room Air Room Air 03/12/22 10:0
--- NOTE | 2022-03-12 09:49 | CA_ITS ---
FINAL REPORT TECHNIQUE: Color Doppler, duplex Doppler and compression sonography of the right lower extremity venous system was performed. CLINICAL HISTORY: right leg pain x 2 days, tightness,nki FINDINGS: There is no evidence of deep venous thrombosis from the level of the groin to the calf. The veins are patent and compressible. IMPRESSION: No evidence of deep venous thrombosis right lower extremity. Reviewed, Interpreted and Dictated by Dl Mckeon III, MD Transcribed by Elzbieta Campos Authenticated and . [facility]
--- NOTE | 2022-03-12 10:10 | PC.NURSE ---
pt ambulatory to the restroom at this time
[2022-03-12 10:12] LABS: Basophils # 0.1 K/mm3 (0-0.2); Basophils % 0.8 % (0.1-2.0); Eosinophils # 0.2 K/mm3 (0.0-0.4); Eosinophils % 2.7 % (0.1-12.0); Hematocrit 39.1 % (37.0-47.0); Hemoglobin 13.6 g/dL (12.2-16.2); Lymphocytes # 1.9 K/mm3 (0.7-4.5); Mean Corpuscular HGB Conc 34.8 g/dL (31.8-35.4); Mean Corpuscular Hemoglobin 27.5 pg (27.0-31.2); Mean Corpuscular Volume 79.2 fl (81-99); Mean Platelet Volume 8.6 fl (7.4-10.4); Monocytes # 0.4 K/mm3 (0.1-1.0); Monocytes % 6.8 % (1.7-9.3); Neutrophils # 3.7 K/mm3 (1.8-7.8); Neutrophils % 59.7 % (37.0-80.0); Platelet Count 260 K/mm3 (142-424); Red Blood Count 4.94 M/mm3 (4.20-5.40); Red Cell Distribution Width 13.5 % (11.5-17.5); White Blood Count 6.2 K/mm3 (4.8-10.8)
[2022-03-12 10:16] LABS: Chloride 106 mmol/L (98-107); Potassium 3.8 mmoL/L (3.5-5.1); Sodium 139 mmol/L (136-145)
--- NOTE | 2022-03-12 10:18 | PC.NURSE ---
doppler is negative
--- NOTE | 2022-03-12 10:18 | CT_ITS ---
FINAL REPORT CLINICAL HISTORY: R leg pain, possible sciatica, numb R toes, pt states that these symptoms have been occurring the last few days, no known trauma. FINDINGS: Axial imaging of the lumbar spine was obtained without contrast. Sagittal and coronal reformatted images were also obtained and reviewed.This study was performed with techniques to keep radiation doses as low as reasonably achievable (ALARA). Individualized dose reduction techniques using automated exposure control or adjustment of mA and/or kV according to the patient''s size were employed. There is no fracture. The vertebral alignment is normal. The disc spaces are preserved. There is no evidence of significant central canal stenosis. L1-2: No evidence of significant central canal stenosis or neuroforaminal narrowing. L2-3: No evidence of significant central canal stenosis or neuroforaminal narrowing. L3-4: No evidence of significant central canal stenosis or neuroforaminal narrowing. L4-5: No evidence of significant central canal stenosis or neuroforaminal narrowing. L5-S1: An annular bulge is present. There is calcification along the posterior border of the L5-S1 disc of uncertain significance, could represent an annular tear. IMPRESSION: Annular bulge at L5-S1 with a possible annular tear. Reviewed, Interpreted and Dictated by Dl Mckeon III, MD Transcribed by Tiffanie Aparicio Authenticated and [facility]
[2022-03-12 10:19] LABS: Alanine Aminotransferase 38 U/L (12-78); Albumin Level 4.4 g/dl (3.5-5.0); Albumin/Globulin Ratio 1.4 (1.1-1.8); Alkaline Phosphatase 83 U/L (38-126); Anion Gap 10.8 mEq/L (5-15); Aspartate Amino Transferase 39 U/L (14-36); Bilirubin,Total 0.4 mg/dl (0.2-1.3); Blood Urea Nitrogen 11 mg/dl (7-17); Calcium 9.1 mg/dl (8.4-10.2); Carbon Dioxide 26 mmol/L (22.0-30.0); Creatinine Clearance Estimated 160 mL/min (50-200); Estimated Glomerular Filt Rate 103 ml/min (>60); GFR (African American) 124 ML/MIN (>60); Globulin 3.2 g/dL (1.3-3.2); Glucose 118 mg/dl (74-100); Total Protein,Serum 7.6 g/dl (6.3-8.2)
--- NOTE | 2022-03-12 10:30 | PC.NURSE ---
rad notified of CT pending preg test
[2022-03-12 10:36] LABS: HCG Qualitative, Serum Negative (Negative)
--- NOTE | 2022-03-12 10:38 | PC.NURSE ---
pt to ct at this time
--- NOTE | 2022-03-12 13:17 | PC.NURSE ---
at the bedside for d/c instructions
--- NOTE | 2022-03-12 13:53 | PC.NURSE ---
this RN went to pt room for d/c. IV infiltrated upon flushing with saline. ordered IV meds held. IV d/c and compress placed on arm.
--- NOTE | 2022-03-12 14:10 | PC.NURSE ---
verbal order for PO cristalco received per .
== END 2022-03-12 14:10 | disposition home or self-care (01) ==
LOC: UTC 08:50 → ER 09:09
PROVIDERS: Emergency Provider Emergency Medicine; PCP Nurse Practitioner Family
DX: M54.16 Radiculopathy, lumbar region (principal); Z88.1 Allergy status to other antibiotic agents
CPT/HCPCS: 72131; 80053; 84703; 85025; 93971; 96374; 96375; 99284; J2405

== ENCOUNTER → 2022-03-25 08:48 | Outpatient (CLI) | payer OTHER, SELFPAY ==
--- NOTE | 2022-03-25 08:52 | XR_ITS ---
FINAL REPORT CLINICAL HISTORY: right knee pain and swelling FINDINGS: RIGHT KNEE Five views were obtained. There is no acute fracture or dislocation. No joint effusion is identified. The joint spaces appear normal. No soft tissue abnormality is identified. IMPRESSION: No acute process. Reviewed, Interpreted and Dictated by Homer Duncan MD Transcribed by Tiffanie Aparicio Authenticated and [facility]
== END ==
PROVIDERS: PCP Physician Assistant; Visit Provider Physician Assistant
DX: M25.561 Pain in right knee (principal)
CPT/HCPCS: 73564

== ENCOUNTER 2022-03-25 09:24 | Outpatient (RCR) | payer OTHER, SELFPAY | END 2022-03-25 10:30 | disposition home or self-care (01) | LOC: PT 09:24 | PROVIDERS: Visit Provider Physician Assistant | DX: M25.561 Pain in right knee (principal) | CPT/HCPCS: 97760 ==

== ENCOUNTER → 2022-04-09 09:38 | Outpatient (CLI) | payer OTHER, SELFPAY ==
--- NOTE | 2022-04-09 09:38 | MR_ITS ---
FINAL REPORT TECHNIQUE: Multiplanar and multisequence imaging the right knee was obtained without contrast. CLINICAL HISTORY: right knee pain. MEDIAL SIDED KNEE PAIN FOR 1 MONTH. NO INJURY OR TRAUMA. FINDINGS: Bones: There is no acute fracture or marrow edema. The joint space is preserved. There are no full thickness cartilage defects. Menisci: No meniscal tear is present. Ligaments: No cruciate or collateral ligament tear is present. Tendons/Muscles: The quadriceps and patellar tendons are within normal limits. The biceps femoris tendon and iliotibial tract are intact. The popliteus tendon is normal. Other: There is no joint effusion. Remaining soft tissues are normal. IMPRESSION: No acute osseous abnormality, meniscal tear, or ligament tear. No supporting structure injury. Reviewed, Interpreted and Dictated by Carlene Thorne MD Transcribed by Lindsey Chavez Authenticated and [facility]
== END ==
PROVIDERS: PCP Physician Assistant; Visit Provider Physician Assistant
DX: M25.561 Pain in right knee (principal)
CPT/HCPCS: 73721

== ENCOUNTER 2022-07-13 07:10 | Emergency (ER) | payer OTHER, SELFPAY ==
[2022-07-13 07:11] VITALS: BP 153/79; PULSE 96; RESP 18; TEMP 36.4; O2SAT 100; BMI 32.9
[2022-07-13 07:38] LABS: Strep Scrn Group A (Rapid) Negative (Negative)
--- NOTE | 2022-07-13 08:01 | PC.NURSE ---
ROUNDED ON PT, COVID/FLU SWAB COLLECTED AND SENT TO LAB. NO NEEDS AT THIS TIME
--- NOTE | 2022-07-13 08:03 | HMH.EDURI ---
Discharge Plan Disposition Patient Disposition: Home, Self-Care Prescriptions Prescriptions: New azithromycin [azithromycin] 250 mg tablet 250 mg PO DIRECTED Qty: 6 0RF Rx Instructions: Take two (2) tablets on day #1, then one (1) tablet day #2 thru #5 benzonatate 100 mg Capsule 100 mg PO Q8H Qty: 20 0RF prednisone [prednisone] 20 mg tablet 20 mg PO BID Qty: 10 0RF No Action celecoxib [Celebrex] 200 mg capsule 200 mg PO DAILY Qty: 30 2RF cyclobenzaprine 10 mg tablet 10 mg PO HS PRN (Reason: muscle spasm) Qty: 30 0RF phentermine [Adipex-P] 37.5 mg tablet 37.5 mg PO DAILY Qty: 30 0RF Rx Instructions: must administer 30 minutes before or 1-2 hours after breakfast Referrals Follow up/Referrals: Damari Luna PA [Primary Care Provider] - See instructions Clinical Impressions Clinical Impression: Bronchitis Instructions Patient Instructions: DI for Acute Bronchitis Discharge ED Provider: Cooper Donato URI/Sore Throat HPI General Chief Complaint: Upper Respiratory Infection Stated Complaint: Earache both ears, sore throat Time Seen by Provider: 07/13/22 08:03 Mode of Arrival: Ambulatory Source of Information: Patient and Medical Record Limitations: No Limitations Description of Symptoms (Recalled from ER Triage Doc. by RN): PT REPORTS SORE THROAT, BILATERAL EAR PAIN, CONGESTION, FEVER AND COUGH FOR 2-3 DAYS History of Present Illness HPI Narrative: uri sx with cough and ear pain over the last few days MD Complaint: fever, cough and nasal congestion Onset (ago): day(s) Duration: intermittent Severity: moderate Able to tolerate fluids by mouth: Yes Treatments prior to arrival: acetaminophen, ibuprofen and cold medicine Related Data Previous Rx's Medication Instructions Recorded celecoxib 200 mg capsule (Celebrex) 200 mg PO DAILY #30 caps 03/25/22 cyclobenzaprine 10 mg tablet 10 mg PO HS PRN muscle spasm #30 03/25/22 tabs phentermine 37.5 mg tablet 37.5 mg PO DAILY #30 tabs 03/25/22 (Adipex-P) azithromycin 250 mg tablet 250 mg PO DIRECTED #6 tabs 07/13/22 benzonatate 100 mg capsule 100 mg PO Q8H #20 caps 07/13/22 prednisone 20 mg tablet 20 mg PO BID #10 tabs 07/13/22 Allergies Allergy/AdvReac Type Severity Reaction Status Date / Time amoxicillin [AMOXICILLIN] Allergy Intermediate I-HIVES Verified 03/25/22 08:24 [facility] Medical History (Updated 07/13/22 @ 08:39 by Cooper Donato MD) No significant past medical history Family History (Updated 07/13/22 @ 07:38 by Jessica Emerson RN) No significant family history Social History (Updated 07/13/22 @ 07:38 by Jessica Emerson RN) Smoking Status: Never smoker alcohol intake: never substance use type: denies use current occupational status: employed Travel in the last 8 weeks: None household members: none housing: other ROS Obtained: Yes All systems reviewed & no additional complaints except as documented Physical Exam General General appearance: alert Head Head exam: normocephalic Eye Eye exam: Present PERRL and EOMI ENT ENT exam: Present normal oropharynx, mucous membranes moist and TM's normal bilaterally Neck Neck exam: Present full ROM and trachea midline Respiratory Respiratory exam: Present normal lung sounds bilaterally; Absent respiratory distress Cardiovascular Cardiovascular exam: Present regular rate Abdominal Exam Abdominal exam: Present soft Extremities Exam Extremities exam: Present full ROM Neurological Exam Neurological exam: Present alert, oriented X3 and CN II-XII intact; Absent motor sensory deficit Psychiatric Psychiatric exam: Present normal affect Skin Skin exam: Absent rash Medical Decision Making Medical Records Medical records reviewed: Yes I reviewed the patient's medical records. Rajesh Inquiry Pt receiving controlled substance: No Vital Signs: 07/13/22 07:11 Temperature 97.6 F Temperature Source Oral
[2022-07-13 08:11] LABS: Coronavirus 19, PCR Not Detected (NotDetected); Influenza A, PCR Not Detected (NotDetected); Influenza B, PCR Not Detected (NotDetected)
[2022-07-13 08:47] VITALS: BP 108/43; PULSE 91; RESP 18; TEMP 36.5; O2SAT 99
== END 2022-07-13 08:50 | disposition home or self-care (01) ==
PROVIDERS: Emergency Provider Emergency Medicine; PCP Physician Assistant
DX: J02.9 Acute pharyngitis, unspecified (principal); H92.03 Otalgia, bilateral; J06.9 Acute upper respiratory infection, unspecified; R50.9 Fever, unspecified; R05.9 Cough, unspecified; R09.81 Nasal congestion; Z79.52 Long term (current) use of systemic steroids; Z79.899 Other long term (current) drug therapy; Z88.0 Allergy status to penicillin; Z88.1 Allergy status to other antibiotic agents; Z88.3 Allergy status to other anti-infective agents
CPT/HCPCS: 87430; 99283; C9803; U0003; U0005

== ENCOUNTER 2022-08-31 02:59 | Emergency (ER) | payer OTHER, SELFPAY ==
[2022-08-31] VITALS (7 sets, daily range): BP systolic 110–128; BP diastolic 39–72; PULSE 75–148; RESP 17–20; TEMP 36.7–36.9; O2SAT 94–98; BMI 32.9
--- NOTE | 2022-08-31 03:15 | XR_ITS ---
PROCEDURE INFORMATION: Exam: XR Chest Exam date and time: 08/31/2022 3:59 AM Age: 26 years old Clinical indication: Cough and shortness of breath; Additional info: Dizziness, cough, SOA TECHNIQUE: Imaging protocol: Radiologic exam of the chest. Views: 2 views. COMPARISON: CR XR CHEST 2V 02/13/2020 1:42 PM FINDINGS: Lungs: Unremarkable. No consolidation. Pleural spaces: Unremarkable. No pleural effusion. No pneumothorax. Heart/Mediastinum: Unremarkable. No cardiomegaly. Bones/joints: Unremarkable. IMPRESSION: No acute findings.
--- NOTE | 2022-08-31 03:15 | CT_ITS ---
PROCEDURE INFORMATION: Exam: CTA Chest With Contrast Exam date and time: 08/31/2022 4:15 AM Age: 26 years old Clinical indication: Cough and shortness of breath; Additional info: Dizziness, cough, SOA TECHNIQUE: Imaging protocol: Computed tomographic angiography of the chest with contrast. 3D rendering (Not supervised by radiologist): MIP and/or 3D reconstructed images were created by the technologist. Radiation optimization: All CT scans at this facility use at least one of these dose optimization techniques: automated exposure control; mA and/or kV adjustment per patient size (includes targeted exams where dose is matched to clinical indication); or iterative reconstruction. Contrast material: ISOVUE; Contrast volume: 75 ml; Contrast route: INTRAVENOUS (IV); COMPARISON: CR XR CHEST 2V 08/31/2022 3:59 AM FINDINGS: Pulmonary arteries: Normal. No pulmonary emboli. Aorta: Unremarkable. No aortic aneurysm. No aortic dissection. Lungs: Unremarkable. No consolidation. No masses. Pleural spaces: Unremarkable. No pneumothorax. No pleural effusion. Heart: Unremarkable. No cardiomegaly. No pericardial effusion. Coronary arteries: No coronary calcium noted. Lymph nodes: Calcified left hilar lymph node. Liver: The liver is low in density. Bones/joints: Unremarkable. No acute fracture. Soft tissues: Unremarkable. IMPRESSION: No evidence of pulmonary embolus or other acute process.
[2022-08-31 03:22] LABS: Coronavirus 19, PCR Not Detected (NotDetected); Influenza B, PCR Not Detected (NotDetected)
[2022-08-31 03:45] LABS: Influenza A, PCR Detected (NotDetected)
[2022-08-31 03:50] LABS: Basophils # 0.1 K/mm3 (0-0.2); Basophils % 1.6 % (0.1-2.0); Eosinophils % 0.3 % (0.1-12.0); Hematocrit 42.6 % (37.0-47.0); Hemoglobin 14.4 g/dL (12.2-16.2); Lymphocytes # 0.7 K/mm3 (0.7-4.5); Lymphocytes % 9.5 % (10-50); Mean Corpuscular HGB Conc 33.9 g/dL (31.8-35.4); Mean Corpuscular Hemoglobin 27.2 pg (27.0-31.2); Mean Corpuscular Volume 80.4 fl (81-99); Mean Platelet Volume 9.9 fl (7.4-10.4); Monocytes # 0.6 K/mm3 (0.1-1.0); Monocytes % 8.1 % (1.7-9.3); Neutrophils # 5.9 K/mm3 (1.8-7.8); Neutrophils % 80.6 % (37.0-80.0); Platelet Count 242 K/mm3 (142-424); Red Blood Count 5.29 M/mm3 (4.20-5.40); Red Cell Distribution Width 13.8 % (11.5-17.5); White Blood Count 7.4 K/mm3 (4.8-10.8)
[2022-08-31 03:54] LABS: HCG Qualitative, Serum Negative (Negative)
[2022-08-31 03:56] LABS: Alanine Aminotransferase 31 U/L (12-78); Albumin Level 4.6 g/dl (3.5-5.0); Albumin/Globulin Ratio 1.4 (1.1-1.8); Alkaline Phosphatase 111 U/L (38-126); Anion Gap 12.9 mEq/L (5-15); Aspartate Amino Transferase 26 U/L (14-36); Bilirubin,Total 0.6 mg/dl (0.2-1.3); Blood Urea Nitrogen 8 mg/dl (7-17); Calcium 9.3 mg/dl (8.4-10.2); Carbon Dioxide 24 mmol/L (22.0-30.0); Chloride 101 mmol/L (98-107); Creatinine Clearance Estimated 124 mL/min (50-200); Estimated Glomerular Filt Rate 77 ml/min (>60); GFR (African American) 93 ML/MIN (>60); Globulin 3.4 g/dL (1.3-3.2); Glucose 114 mg/dl (74-100); Potassium 3.9 mmoL/L (3.5-5.1); Sodium 134 mmol/L (136-145)
[2022-08-31 04:08] LABS: Troponin I < 0.01 ng/ml (0.00-0.034)
--- NOTE | 2022-08-31 05:28 | HMH.EDURI ---
Discharge Plan Disposition Patient Disposition: Home, Self-Care Chief Complaint: Upper Respiratory Infection Prescriptions Prescriptions: No Action celecoxib [Celebrex] 200 mg capsule 200 mg PO DAILY Qty: 30 2RF cyclobenzaprine 10 mg tablet 10 mg PO HS PRN (Reason: muscle spasm) Qty: 30 0RF phentermine [Adipex-P] 37.5 mg tablet 37.5 mg PO DAILY Qty: 30 0RF Rx Instructions: must administer 30 minutes before or 1-2 hours after breakfast azithromycin [azithromycin] 250 mg tablet 250 mg PO DIRECTED Qty: 6 0RF Rx Instructions: Take two (2) tablets on day #1, then one (1) tablet day #2 thru #5 benzonatate 100 mg Capsule 100 mg PO Q8H Qty: 20 0RF prednisone [prednisone] 20 mg tablet 20 mg PO BID Qty: 10 0RF Referrals Follow up/Referrals: Damari Luna PA [Primary Care Provider] - See instructions Clinical Impressions Clinical Impression: Influenza Instructions Patient Instructions: DI for Influenza -- Adult Discharge ED Provider: Cooper Donato URI/Sore Throat HPI General Chief Complaint: Upper Respiratory Infection Stated Complaint: Sore throat,body aches,ZHOU,weakness Time Seen by Provider: 08/31/22 03:45 Mode of Arrival: Ambulatory Source of Information: Patient, Relative and Medical Record Limitations: No Limitations Description of Symptoms (Recalled from ER Triage Doc. by RN): Pt c/o headache, body aches, dizziness, chills, decreased appetite, nausea, back aches, chest congestion, cough and chest pressure since yesterday. History of Present Illness HPI Narrative: achey with congestion and cough over the last few days MD Complaint: cough Onset (ago): day(s) Duration: intermittent Severity: moderate Able to tolerate fluids by mouth: Yes Associated symptoms: denies other symptoms Related Data Previous Rx's Medication Instructions Recorded celecoxib 200 mg capsule (Celebrex) 200 mg PO DAILY #30 caps 03/25/22 cyclobenzaprine 10 mg tablet 10 mg PO HS PRN muscle spasm #30 03/25/22 tabs phentermine 37.5 mg tablet 37.5 mg PO DAILY #30 tabs 03/25/22 (Adipex-P) azithromycin 250 mg tablet 250 mg PO DIRECTED #6 tabs 07/13/22 benzonatate 100 mg capsule 100 mg PO Q8H #20 caps 07/13/22 prednisone 20 mg tablet 20 mg PO BID #10 tabs 07/13/22 Allergies Allergy/AdvReac Type Severity Reaction Status Date / Time amoxicillin [AMOXICILLIN] Allergy Intermediate I-HIVES Verified 03/25/22 08:24 [facility] Disclaimer: The information contained in this section may have been updated after the patient was seen, as this information can be updated by other users. Medical History (Updated 08/31/22 @ 05:34 by Cooper Donato MD) No significant past medical history Family History (Updated 07/13/22 @ 07:38 by Jessica Emerson RN) No significant family history Social History (Updated 07/13/22 @ 07:38 by Jessica Emerson RN) Smoking Status: Never smoker alcohol intake: never substance use type: denies use current occupational status: employed Travel in the last 8 weeks: None household members: none housing: other ROS Obtained: Yes All systems reviewed & no additional complaints except as documented Physical Exam General General appearance: alert Head Head exam: normocephalic Eye Eye exam: Present PERRL and EOMI ENT ENT exam: Present mucous membranes moist Neck Neck exam: Absent trachea midline Respiratory Respiratory exam: Present normal lung sounds bilaterally; Absent respiratory distress Cardiovascular Cardiovascular exam: Present tachycardia Abdominal Exam Abdominal exam: Present soft Extremities Exam Extremities exam: Present full ROM Neurological Exam Neurological exam: Present alert, oriented X3 and CN II-XII intact Skin Skin exam: Present intact Medical Decision Making Medical Records Medical records reviewed: Yes I reviewed the patient's medical records. Rajesh Inquiry Pt receiving controlled substance: No Vit
--- NOTE | 2022-08-31 13:37 | ECG_ITS ---
APPROVED REPORT Exam: Resting ECG HR:127 bpm ECG Measurements Heart Rate 127 AXES NE 126 P 57 QRSd 96 QRS 44 QT 315 T 50 QTc 390 Conclusion SINUS TACHYCARDIA INCOMPLETE RIGHT BUNDLE BRANCH BLOCK [90+ ms QRS DURATION, TERMINAL R IN V1/V2, 40+ ms S IN I/aVL/V4/V5/V6] ABNORMAL RHYTHM ECG UNCONFIRMED REPORT Electronically signed by : Kosta Jimenez MD 08/31/2022 12:16:16
== END 2022-08-31 05:52 | disposition home or self-care (01) ==
PROVIDERS: Emergency Provider Emergency Medicine; PCP Physician Assistant
DX: R42 Dizziness and giddiness; R11.0 Nausea; M54.9 Dorsalgia, unspecified; R00.0 Tachycardia, unspecified; Z20.822 Contact with and (suspected) exposure to COVID-19; Z79.51 Long term (current) use of inhaled steroids; Z79.52 Long term (current) use of systemic steroids; Z79.899 Other long term (current) drug therapy; Z88.0 Allergy status to penicillin; Z88.1 Allergy status to other antibiotic agents; Z88.3 Allergy status to other anti-infective agents
CPT/HCPCS: 71046; 71275; 80053; 84484; 84703; 85025; 93005; 96361; 96374; 96375; 99285; C9803; J2405; Q9967; U0003; U0005

== ENCOUNTER 2022-11-06 10:09 | Emergency (ER) | payer OTHER, SELFPAY ==
[2022-11-06 10:15] VITALS: BP 133/83; PULSE 85; RESP 20; TEMP 36.9; O2SAT 99; BMI 32.9
--- NOTE | 2022-11-06 10:19 | EXP.UTC ---
Discharge Plan Disposition Patient Disposition: Home, Self-Care Condition: Good Prescriptions Prescriptions: New methylprednisolone 4 mg Tablets,Dose Pack 4 mg PO DIRECTED Qty: 21 0RF Referrals Follow up/Referrals: Smooth Spain JR, MD [Physician] - See instructions Damari Luna PA [Primary Care Provider] - See instructions Activity Restrictions/Add. Instructions Additional Instructions/Restrictions: Rest the extremity, Elevate the extremity as tolerated while you are resting. Take the medications as directed. While you are on the medrol dose pack (methylprednisone), you should not take much ibuprofen because these medications would be doing essentially the same thing and you wouldn't need both at once. Follow up with Dr. Spain (orthopedics). I put in a referral but you need to call his office and schedule an appointment. Follow up with your regular doctor. GO TO THE ER FOR ANY WORSENING SYMPTOMS Clinical Impressions Clinical Impression: Right hand tendonitis Stand Alone Forms Stand Alone Forms: Work/School Release Instructions Patient Instructions: DI for Tendinitis Discharge ED Provider: Kamari White [facility] General Stated complaint: RT thumb pain no accident Time Seen by Provider: 11/06/22 10:19 History of Present Illness Provider Complaint: She states that since yesterday she has had right thumb pain and stiffness. She states that her thumb has got caught at times and she has to use her other hand to straighten it out . She denies any injury. 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 She denies any recent injury. She has taken ibuprofen for the pain and it does help slightly, but then her pain come back when the ibuprofen wears off. Related Data Previous Rx's Medication Instructions Recorded methylprednisolone 4 mg tablets in 4 mg PO DIRECTED #21 tabs 11/06/22 a dose pack Allergies Allergy/AdvReac Type Severity Reaction Status Date / Time amoxicillin [AMOXICILLIN] Allergy Intermediate I-HIVES Verified 11/06/22 10:23 [facility] Disclaimer: The information contained in this section may have been updated after the patient was seen, as this information can be updated by other users. Medical History No significant past medical history Family History Other No significant family history Social History Smoking Status: Never smoker alcohol intake: never substance use type: denies use current occupational status: employed Travel in the last 8 weeks: None household members: none housing: other ROS Obtained: Yes All systems reviewed & no additional complaints except as documented Constitutional Constitutional: Denies chills and Denies fever(s) Eyes Eyes: Denies eye discharge ENT Ears, Nose, Mouth, and Throat: Denies dizziness, Denies otalgia and Denies sore throat Cardiovascular Cardiovascular: Denies chest pain Respiratory Respiratory: Denies shortness of breath, Denies chest congestion, Denies cough, Denies stridor and Denies wheezing Gastrointestinal Gastrointestingal: Denies nausea or vomiting Musculoskeletal Musculoskeletal: Reports as per HPI Integumentary/Breasts Skin/Breast: Denies rash Neurologic Neurologic: Denies dizziness and Denies paresthesias Allergic/Immunologic Allergic/Immunologic: Denies wheezing Physical Exam General General appearance: alert and in no apparent distress Head Head exam: atraumatic, normocephalic and normal inspection Eye Eye exam: Present normal appearance, PERRL and EOMI ENT ENT exam: Present normal exam, normal oropharynx, mucous membranes moist, TM's normal bilaterally and normal external ear exam Neck Neck exam: Present normal inspection, full ROM and trachea midline; Absent meningismus or lymphadenopathy C
--- NOTE | 2022-11-06 10:20 | XR_ITS ---
FINAL REPORT CLINICAL HISTORY: right wrist pain COMPARISON: None FINDINGS: RIGHT WRIST Three views demonstrate no acute fracture or dislocation. The visualized joint spaces are normally aligned. The soft tissues are unremarkable. IMPRESSION: No acute bony abnormality. Reviewed, Interpreted and Dictated by Dl Mckeon III, MD Transcribed by Meli Sheridan Authenticated and . [facility]
--- NOTE | 2022-11-06 10:20 | XR_ITS ---
FINAL REPORT CLINICAL HISTORY: right hand pain. no injury or trauma COMPARISON: None FINDINGS: RIGHT HAND: 3 views of the right hand were obtained. There is no acute fracture or dislocation. Visualized joint spaces are normally aligned. Soft tissues are unremarkable. IMPRESSION: No acute bony abnormality. Reviewed, Interpreted and Dictated by Dl Mckeon III, MD Transcribed by Meli Sheridan Authenticated and [facility]
[2022-11-06 11:00] VITALS: BP 133/83; PULSE 85; RESP 20; TEMP 36.9; O2SAT 99
== END 2022-11-06 11:00 | disposition home or self-care (01) ==
PROVIDERS: Emergency Provider Nurse Practitioner Family; PCP Physician Assistant
DX: M77.8 Other enthesopathies, not elsewhere classified (principal)
CPT/HCPCS: 73110; 73130; 99212; 99213; G0463

== ENCOUNTER 2024-01-19 12:21 | Outpatient (CLI) | payer MEDICAID, SELFPAY ==
--- NOTE | 2024-01-19 13:18 | XR_ITS ---
FINAL REPORT CLINICAL HISTORY: swelling in knee COMPARISON: None FINDINGS: Three views of the right knee reveal no evidence of fracture or dislocation. The bony alignment is normal. The joint spaces are preserved. There is no evidence of joint effusion. No localized soft tissue abnormality is identified. IMPRESSION: No acute abnormality identified. Reviewed, Interpreted and Dictated by Dl Mckeon III, MD Transcribed by Lisa Saunders Authenticated and [facility]
[2024-01-19 19:07] LABS: Basophils # 0.1 K/mm3 (0-0.2); Basophils % 0.8 % (0.1-2.0); Eosinophils % 0.5 % (0.1-12.0); Hematocrit 40.3 % (37.0-47.0); Hemoglobin 13.3 g/dL (12.2-16.2); Lymphocytes # 1.7 K/mm3 (0.7-4.5); Lymphocytes % 27.3 % (10-50); Mean Corpuscular HGB Conc 32.9 g/dL (31.8-35.4); Mean Corpuscular Hemoglobin 28.2 pg (27.0-31.2); Mean Corpuscular Volume 85.6 fl (81-99); Mean Platelet Volume 11.1 fl (7.4-10.4); Monocytes # 0.3 K/mm3 (0.1-1.0); Monocytes % 4.8 % (1.7-9.3); Neutrophils # 4.3 K/mm3 (1.8-7.8); Neutrophils % 66.6 % (37.0-80.0); Platelet Count 223 K/mm3 (142-424); Red Blood Count 4.71 M/mm3 (4.20-5.40); Red Cell Distribution Width 14.7 % (11.5-17.5); White Blood Count 6.4 K/mm3 (4.8-10.8)
[2024-01-19 19:29] LABS: Alanine Aminotransferase 33 U/L (12-78); Albumin Level 4.1 g/dl (3.5-5.0); Albumin/Globulin Ratio 1.5 (1.1-1.8); Alkaline Phosphatase 79 U/L (38-126); Anion Gap 14.1 mEq/L (5-15); Aspartate Amino Transferase 29 U/L (14-36); Bilirubin,Total 0.6 mg/dl (0.2-1.3); Blood Urea Nitrogen 14 mg/dl (7-17); Carbon Dioxide 26 mmol/L (22.0-30.0); Chloride 102 mmol/L (98-107); Chol/HDL Ratio 4.1 (1-3.5); Cholesterol 153 mg/dl (140-200); Estimated Glomerular Filt Rate 101 ml/min (>60); GFR (African American) 122 ML/MIN (>60); Globulin 2.7 g/dL (1.3-3.2); Glucose 102 mg/dl (74-100); HDL Cholesterol 37 mg/dl (40-60); Potassium 4.1 mmoL/L (3.5-5.1); Sodium 138 mmol/L (136-145); Total Protein,Serum 6.8 g/dl (6.3-8.2); Triglycerides 108 mg/dl (30-150); Uric Acid 4.3 mg/dl (2.5-6.2); VLDL Cholesterol 22 mg/dL (0-40)
[2024-01-19 19:40] LABS: Direct LDL Cholesterol 90.44 mg/dL (100-129)
[2024-01-19 19:59] LABS: Thyroid Stimulating Hormone 3.04 uIU/mL (0.465-4.68)
[2024-01-19 20:07] LABS: 25-OH Vitamin D, Total < 12.8 ng/mL (30-100)
[2024-01-19 22:04] LABS: Hemoglobin A1C 5.2 % (4.0-6.0)
== END 2024-01-19 23:59 | disposition home or self-care (01) ==
PROVIDERS: PCP Physician Assistant; Visit Provider Family Medicine
DX: M25.561 Pain in right knee (principal); M25.461 Effusion, right knee; E55.9 Vitamin D deficiency, unspecified; Z68.41 Body mass index [BMI] 40.0-44.9, adult
CPT/HCPCS: 73562; 80053; 80061; 82306; 83036; 84443; 84550; 85025

== ENCOUNTER 2024-01-28 09:59 | Outpatient (CLI) | payer MEDICAID, SELFPAY ==
--- NOTE | 2024-01-28 09:59 | US_ITS ---
FINAL REPORT CLINICAL HISTORY: right knee pain FINDINGS: ULTRASOUND SOFT TISSUES OF THE RIGHT KNEE TECHNIQUE: Limited sonographic imaging of the soft tissues of the right knee were obtained. FINDINGS: No cyst or mass is identified. There is no lymphadenopathy. No fluid collection is identified. IMPRESSION: No cyst or mass is identified at the area of interest in the right knee. Reviewed, Interpreted and Dictated by Dl Mckeon III, MD Transcribed by Nikky Alcantar Authenticated and [facility]
== END 2024-01-28 23:59 | disposition home or self-care (01) ==
LOC: RAD 09:59
PROVIDERS: PCP Family Medicine; Visit Provider Family Medicine
DX: M25.561 Pain in right knee (principal); M25.461 Effusion, right knee
CPT/HCPCS: 76882

== ENCOUNTER 2024-05-08 10:13 | Emergency (ER) | payer SELFPAY ==
[2024-05-08 11:04] LABS: UTC Strep Screen (Rapid) Negative (Negative)
[2024-05-08 11:05] VITALS: BP 129/85; PULSE 98; RESP 16; TEMP 36.8; O2SAT 100; BMI 40.9
--- NOTE | 2024-05-08 11:20 | EXP.UTC ---
Discharge Plan Disposition Patient Disposition: Home, Self-Care Condition: Good Prescriptions Prescriptions: New cefdinir 300 mg capsule 300 mg PO BID 10 Days Qty: 20 0RF pseudoephedrine HCl [Sudafed 12 Hour] 120 mg tablet extended release 120 mg PO Q12H PRN (Reason: nasal congestion) Qty: 20 0RF ciprofloxacin-dexamethasone 0.3-0.1 % drops,suspension 4 drp otic (ear) BID 7 Days Qty: 7.5 0RF Rx Instructions: right ear as directed No Action ergocalciferol (vitamin D2) [Vitamin D2] 1,250 mcg (50,000 unit) capsule 1,250 mcg PO WEEKLY Qty: 5 2RF Referrals Follow up/Referrals: Damari Luna PA [Primary Care Provider] - See instructions Activity Restrictions/Add. Instructions Additional Instructions/Restrictions: *Monitor Temp, Over the counter Motrin or Tylenol as directed/as needed Tylenol every 4 hours and Motrin every 6 hours (as long as your family doctor has told you that you can take it) for fever or pain. and straight to ER if unable to lower temp less than 101.0 after medication given *Warm salt water gargles may help to soothe the throat *Throat Lozenges? *Warm fluids like tea with honey may help to soothe the throat? *Sleep elevated *Humidifier/Vaporizer *Your throat swab was sent for culture. Those results are typically sent to your primary care. Be sure to follow up in 2-3 days with your family doctor/primary care physician if no improvement so they can review those result and treat if necessary. If you don?t have a primary care doctor, I recommend you get one but in the mean time, you will have to return to a walk in clinic Follow up IMMEDIATELY for new or worsening symptoms or no Noticeable improvement over the next 48-72 hours. 911 for difficulty breathing or swallowing You were tested for today for Upper Respiratory Panel with COVID19 your test result should be back in the next 24 hours, you may check the [facility] for results of your test Clinical Impressions Clinical Impression: Otitis media Stand Alone Forms Stand Alone Forms: Work/School Release Instructions Patient Instructions: Middle Ear Infection, DI for Nasal Congestion Print Language Print Language: Armenian Discharge ED Provider: Natalie Gotti [facility] H[place] General Stated complaint: cough, sore throat, pain in both ears, headache, Mode of Arrival: Ambulatory Source of Information: Patient Limitations: No Limitations Time Seen by Provider: 05/08/24 11:20 Description of Symptoms (Recalled from Triage Doc. by RN): Reports cough, body aches, sore throat and ear pain. HEENT Symptoms (Recalled from RN notes): Yes Resp Symptoms (Recalled from RN notes): No Skin Symptoms (Recalled from RN notes): No MS Symptoms (Recalled from RN notes): No Functional Status (Recalled from RN notes): wnl History of Present Illness Provider Complaint: Patient states that she has been having bilateral ear pain, sinus congestion and pressure, body aches and over all not feeling well States today she wasnt feeling any better so she came in to get checked Related Data Previous Rx's ?Medication ?Instructions ?Recorded ergocalciferol (vitamin D2) 1,250 1,250 mcg PO WEEKLY #5 caps 01/20/24 mcg (50,000 unit) capsule (Vitamin D2) cefdinir 300 mg capsule 300 mg PO BID 10 days #20 caps 05/08/24 ciprofloxacin 0.3 %-dexamethasone 4 drp otic (ear) BID 7 days #7.5 mL 05/08/24 0.1 % ear drops,suspension pseudoephedrine HCl 120 mg 120 mg PO Q12H PRN nasal 05/08/24 tablet,extended release (Sudafed congestion #20 tabs 12 Hour) Allergies Allergy/AdvReac Type Severity Reaction Status Date / Time amoxicillin [AMOXICILLIN] Allergy Intermediate I-HIVES Verified 01/19/24 11:03 Worker's Comp Is this a Worker's Comp case?: No [facility] Disclaimer: The information contained in this section may have been updated after the patient was seen, as this information can be updated by othe
[2024-05-08 12:11] VITALS: BP 129/85; PULSE 98; RESP 16; TEMP 36.8; O2SAT 100
[2024-05-08 13:07] LABS: Coronavirus 19, PCR Detected (NotDetected); Influenza A, PCR Not Detected (NotDetected); Influenza B, PCR Not Detected (NotDetected)
== END 2024-05-08 12:12 | disposition home or self-care (01) ==
PROVIDERS: Emergency Provider Nurse Practitioner; PCP Physician Assistant
DX: U07.1 COVID-19 (principal); H66.93 Otitis media, unspecified, bilateral; R09.81 Nasal congestion
CPT/HCPCS: 87636; 87880; 99212; 99214; G0463

== ENCOUNTER 2024-08-24 08:10 | Emergency (ER) | payer SELFPAY ==
[2024-08-24 08:20] VITALS: BP 125/82; PULSE 116; RESP 23; TEMP 37.5; O2SAT 100; BMI 42.2
--- NOTE | 2024-08-24 08:30 | EXP.UTC ---
Discharge Plan Disposition Patient Disposition: Home, Self-Care Condition: Good Prescriptions Prescriptions: New pseudoephedrine HCl [Sudafed 12 Hour] 120 mg tablet extended release 120 mg PO Q12H PRN (Reason: nasal congestion) Qty: 20 0RF guaifenesin [Mucinex] 1,200 mg tablet extended release 12hr 1,200 mg PO Q12H PRN (Reason: congestion) Qty: 20 0RF Referrals Follow up/Referrals: Damari Luna PA [Primary Care Provider] - See instructions Activity Restrictions/Add. Instructions Additional Instructions/Restrictions: *Monitor Temp, Over the counter Motrin or Tylenol as directed/as needed Tylenol every 4 hours and Motrin every 6 hours (as long as your family doctor has told you that you can take it) for fever or pain. and straight to ER if unable to lower temp less than 101.0 after medication given *Warm salt water gargles may help to soothe the throat *Throat Lozenges? *Warm fluids like tea with honey may help to soothe the throat? *Sleep elevated *Humidifier/Vaporizer *Bromfed may cause drowsiness. Know how it effects you (your child) before driving, caring for small child, or sending your child to school. Not other antihistamines/allergy medications while taking bromfed Your throat swab was sent for culture. Those results are typically sent to your primary care. Be sure to follow up in 2-3 days with your family doctor/primary care physician if no improvement so they can review those result and treat if necessary. If you don?t have a primary care doctor, I recommend you get one but in the mean time, you will have to return to a walk in clinic Follow up IMMEDIATELY for new or worsening symptoms or no Noticeable improvement over the next 48-72 hours. 911 for difficulty breathing or swallowing Clinical Impressions Clinical Impression: Viral syndrome Stand Alone Forms Stand Alone Forms: Work/School Release Instructions Patient Instructions: Sore Throat, DI for Nasal Congestion Print Language Print Language: Luxembourgish Discharge ED Provider: Natalie Gotti [facility] HPI General Stated complaint: congestion, headache, sore throat Mode of Arrival: Ambulatory Source of Information: Patient Limitations: No Limitations Time Seen by Provider: 08/24/24 08:31 Description of Symptoms (Recalled from Triage Doc. by RN): PATIENT C/O SORE THROAT, HEADACHE, EAR PAIN, SOA, CONGESTION, AND BODY ACHES X 2 DAYS HEENT Symptoms (Recalled from RN notes): Yes Resp Symptoms (Recalled from RN notes): Yes Skin Symptoms (Recalled from RN notes): No MS Symptoms (Recalled from RN notes): No Functional Status (Recalled from RN notes): WNL History of Present Illness Provider Complaint: Patient states that for the last couple of days she has not been feeling well States that she has been having nasal congestion, sore throat, body aches, chills, pain and pressure in her ears and at times feeling SOA on and off States today she feels like she cannot get warm and having chills so she came in Related Data Previous Rx's ?Medication ?Instructions ?Recorded guaifenesin 1,200 mg tablet, 1,200 mg PO Q12H PRN congestion 08/24/24 extended release 12 hr (Mucinex) #20 tabs pseudoephedrine HCl 120 mg 120 mg PO Q12H PRN nasal 08/24/24 tablet,extended release (Sudafed congestion #20 tabs 12 Hour) Allergies Allergy/AdvReac Type Severity Reaction Status Date / Time amoxicillin (AMOXICILLIN) Allergy Intermediate I-HIVES Verified 01/19/24 11:03 Worker's Comp Is this a Worker's Comp case?: No [facility] Disclaimer: The information contained in this section may have been updated after the patient was seen, as this information can be updated by other users. Medical History (Updated 08/24/24 @ 08:48 by Natalie Gotti APRN) Viral syndrome Strep tonsillitis Otitis media Otitis externa Gastroenteritis Left otitis media Left otitis externa Viral gastroenteritis Contusion of left hand Sinusitis, acute maxillary Acute bacterial tonsillitis No significant past medical history Family History Other No significant family history Social History Smoking Status: Never smoker alcohol intake: never substance use type: denies use current occupational status: employed Travel in the last 8 weeks: None household members: none housing: other ROS Obtained: Yes All systems reviewed & no additional complaints except as documented and Yes Systems reviewed as appropriate & no additional complaints except as documented Constitutional Constitutional: Reports system reviewed and no additional complaints, except as documented, Reports as per HPI, Reports body ache and Reports chills ENT Ears, Nose, Mouth, and Throat: Reports system reviewed and no additional complaints, except as documented, Reports as per HPI, Reports otalgia, Reports nasal congestion, Reports nasal discharge and Reports sore throat Cardiovascular Cardiovascular: Reports system reviewed and no additional complaints, except as documented and Reports as per HPI Respiratory Respiratory: Reports system reviewed and no additional complaints, except as documented, Reports as per HPI, Reports shortness of breath, Denies chest congestion, Denies pain on inspiration, Denies pain with cough and Denies wheezing Gastrointestinal Gastrointestingal: Reports system reviewed and no additional complaints, except as documented and as per HPI Allergic/Immunologic Allergic/Immunologic: Denies wheezing Physical Exam General General appearance: alert and in no apparent distress ENT ENT exam: Present mucous membranes moist Expanded ENT Exam Nose exam: Present other (clear drainage) Throat exam: Present other (mild pharyngeal erythema noted); Absent tonsillomegaly or tonsillar exudate Respiratory Respiratory exam: Present normal lung sounds bilaterally; Absent respiratory distress or wheezes Cardiovascular Cardiovascular exam: Present regular rate, normal rhythm and normal heart sounds Abdominal Exam Abdominal exam: Present soft and normal bowel sounds; Absent distention or tenderness Neurological Exam Neurological exam: Present alert, oriented X3 and normal gait Medical Decision Making Medical Records Medical records reviewed: Yes I reviewed the patient's medical records. Screening: Per USPSTF and CDC recommendations, given the prevalence of disease in our region, it is our hospital?s policy to screen for HIV and viral Hepatitis for all patients aged 18 and over and those with ongoing risk factors. Rajesh Inquiry Pt receiving controlled substance: No Rajesh was queried for this patient: No Vital Signs: 08/24/24 08:20 Temperature 99.5 F Temperature Source Oral Pulse Rate [Left Brachial] 116 H Respiratory Rate 23 Blood Pressure [Left Arm] 125/82 Blood Pressure Mean [Left Arm] 96 Blood Pressure Source [Left Arm] Automatic Cuff Blood Pressure Position [Left Arm] Sitting 02 Sat by Pulse Oximetry 100 Oxygen Delivery Method Room Air Lab Data Lab results reviewed: Yes I reviewed the patient's lab results.
[2024-08-24 08:48] VITALS: BP 125/82; PULSE 116; RESP 23; TEMP 37.5; O2SAT 100
[2024-08-24 08:52] LABS: UTC Influenza A Antigen Negative (Negative); UTC Strep Screen (Rapid) Negative (Negative)
[2024-08-24 08:53] LABS: UTC Influenza B Antigen Negative (Negative)
== END 2024-08-24 08:50 | disposition home or self-care (01) ==
PROVIDERS: Emergency Provider Nurse Practitioner; PCP Physician Assistant
DX: B34.9 Viral infection, unspecified (principal); R06.02 Shortness of breath; R51.9 Headache, unspecified; R09.81 Nasal congestion; J02.9 Acute pharyngitis, unspecified; H92.03 Otalgia, bilateral; M79.10 Myalgia, unspecified site; R68.83 Chills (without fever)
CPT/HCPCS: 87635; 87804; 87880; 99212; G0381

== ENCOUNTER 2024-11-19 20:10 | Emergency (ER) | payer SELFPAY ==
[2024-11-19 20:47] VITALS: BP 139/79; PULSE 136; RESP 17; TEMP 36.9; O2SAT 99; BMI 32.9
[2024-11-19 21:07] LABS: Coronavirus 19, PCR Not Detected (NotDetected); Influenza A, PCR Not Detected (NotDetected); Influenza B, PCR Not Detected (NotDetected)
[2024-11-19] MEDS: ONDANSETRON 4MG ODT 4 MG SL (21:23)
[2024-11-19 21:31] LABS: Microscopic, Urine URINE MICROSCOPIC (MICROSCOPIC)
[2024-11-19 21:34] LABS: Urine Pregnancy, HCG Qual. Negative (Negative)
[2024-11-19 21:35] LABS: Appearance,Urine Clear (Clear); Bilirubin,Urine Negative (Negative); Blood, Urine Negative (Negative); Color,Urine Yellow (Yellow); Glucose,Urine (UA) Negative (Negative); Ketones,Urine Negative (Negative); Leukocyte Esterase,Urine Negative (Negative); Nitrate,Urine Negative (Negative); PH,Urine 5.5 (5.0-8.5); Protein,Urine Trace (Negative); Specific Gravity, Urine 1.025 (1.005-1.030); Urobilinogen,Urine 0.2 EU/dl (0.2)
[2024-11-19 21:48] LABS: Bacteria,Urine 1+ /lpf
[2024-11-19 22:06] VITALS: BP 141/84; PULSE 94; O2SAT 99
[2024-11-19] MEDS: 0.9 % SODIUM CHLORIDE 1000ML 1,000 ML 999 ML IV (22:24)
[2024-11-19 22:26] LABS: Basophils % 0.2 % (0.1-2.0); Eosinophils % 0.1 % (0.1-12.0); Hematocrit 44.2 % (37.0-47.0); Hemoglobin 14.4 g/dL (12.2-16.2); Lymphocytes # 0.7 K/mm3 (0.7-4.5); Lymphocytes % 8.2 % (10-50); Mean Corpuscular HGB Conc 32.6 g/dL (31.8-35.4); Mean Corpuscular Hemoglobin 26.4 pg (27.0-31.2); Mean Corpuscular Volume 81.1 fl (81-99); Mean Platelet Volume 11.4 fl (7.4-10.4); Monocytes # 0.4 K/mm3 (0.1-1.0); Monocytes % 4.7 % (1.7-9.3); Neutrophils # 7.5 K/mm3 (1.8-7.8); Neutrophils % 86.5 % (37.0-80.0); Platelet Count 241 K/mm3 (142-424); Red Blood Count 5.45 M/mm3 (4.20-5.40); Red Cell Distribution Width 13.2 % (11.5-17.5); White Blood Count 8.7 K/mm3 (4.8-10.8)
[2024-11-19 22:30] VITALS: BP 147/89; PULSE 100; O2SAT 97
[2024-11-19 22:37] LABS: Albumin Level 4.9 g/dl (3.5-5.0); Chloride 103 mmol/L (98-107); Potassium 3.9 mmoL/L (3.5-5.1); Sodium 136 mmol/L (136-145)
[2024-11-19 22:39] LABS: Alanine Aminotransferase 37 U/L (12-78); Alkaline Phosphatase 96 U/L (38-126); Anion Gap 10.9 mEq/L (5-15); Aspartate Amino Transferase 29 U/L (14-36); Blood Urea Nitrogen 14 mg/dl (7-17); Carbon Dioxide 26 mmol/L (22.0-30.0); Creatinine Clearance Estimated 156 mL/min (50-200); Estimated Glomerular Filt Rate 100 ml/min (>60); GFR (African American) 121 ML/MIN (>60)
[2024-11-19 22:40] LABS: Albumin/Globulin Ratio 1.5 (1.1-1.8); Globulin 3.2 g/dL (1.3-3.2); Glucose 90 mg/dl (74-100); Lipase 22 U/L (23-300); Magnesium 1.8 mg/dl (1.6-2.3); Total Protein,Serum 8.1 g/dl (6.3-8.2)
[2024-11-19 23:01] VITALS: BP 148/92; PULSE 98; O2SAT 100
[2024-11-19 23:24] VITALS: BP 116/72; PULSE 90; RESP 16; TEMP 36.6; O2SAT 98
--- NOTE | 2024-11-19 23:25 | PC.NURSE ---
IV removed. Catheter tip intact. Bleeding controlled.
--- NOTE | 2024-11-19 23:55 | HMH.EDGENADL ---
Discharge Plan Disposition Patient Disposition: Home, Self-Care Condition: Good Prescriptions Prescriptions: New ondansetron 4 mg tablet,disintegrating 4 mg PO Q8H PRN (Reason: nausea and vomiting) 3 Days Qty: 9 0RF Referrals Follow up/Referrals: Damari Luna PA [Primary Care Provider] - See instructions Activity Restrictions/Add. Instructions Additional Instructions/Restrictions: You were seen for vomiting. This is felt to be viral. Please return to the ER if you develop severe pain or cannot hold down fluids. Clinical Impressions Clinical Impression: Vomiting Instructions Patient Instructions: DI for Vomiting -- Adult Print Language Print Language: Indonesian Discharge ED Provider: Ed Mccormick General Adult HPI <PORSHA Sanchez - Last Filed: 11/19/24 23:57> General Chief complaint: Nausea/Vomiting/Diarrhea Stated complaint: vomiting,nausea,headache,dizzy Time Seen by Provider: 11/19/24 20:45 Mode of Arrival: Ambulatory Source of Information: Patient Description of Symptoms (Recalled from ER Triage Doc. by RN): States she started feeling ill this morning. States she started vomiting and having body aches 10/10, head spinning, headache 5/10. and feeling hot and cold. Also reports diarrhea. Denies any recent fever. States she took motrin around 1200. History of Present Illness HPI narrative: Patient presents complaining of nausea vomiting since this morning. She reports that she started to feel lightheaded as well. She has had bodyaches, headache. Denies any documented fever but has experienced some chills. Denies any cough or congestion. Denies any urinary symptoms. MD complaint: N/V Onset (ago): hour(s) Severity: moderate Consistency: intermittent Relieving factors: none Exacerbating factors: none Associated symptoms: fever/chills and nausea/vomiting Related Data Previous Rx's ?Medication ?Instructions ?Recorded ondansetron 4 mg disintegrating 4 mg PO Q8H PRN nausea and 11/19/24 tablet vomiting 3 days #9 tabs Allergies Allergy/AdvReac Type Severity Reaction Status Date / Time amoxicillin (AMOXICILLIN) Allergy Intermediate I-HIVES Verified 11/19/24 20:46 PFSH <PORSHA Sanchez - Last Filed: 11/19/24 23:57> [facility] Disclaimer: The information contained in this section may have been updated after the patient was seen, as this information can be updated by other users. Medical History (Updated 11/19/24 @ 23:16 by PORSHA Sanchez) Viral syndrome Strep tonsillitis Otitis media Otitis externa Gastroenteritis Left otitis media Left otitis externa Viral gastroenteritis Contusion of left hand Sinusitis, acute maxillary Acute bacterial tonsillitis No significant past medical history Family History Other No significant family history Social History Smoking Status: Never smoker alcohol intake: never substance use type: denies use current occupational status: employed Travel in the last 8 weeks: None household members: none housing: other Have you lived/traveled outside [place] in past 30 days?: No Contact w/someone who lives/traveled outside US past 30 days?: No Exposure to someone with infectious disease in past 14 days?: No Do you have a fever (greater than 100.4 F or 38 C)?: Yes Have you tested positive for COVID-19: No Exposed to someone with COVID-19 in past 14 days?: No Do you have a sore throat?: No Do you have a cough?: No Do you have any weakness?: Yes Do you have any diarrhea?: No Are you experiencing any unusual bleeding?: No Do you have any muscle aches/pain?: No Do you have any abdominal pain?: No Are you experiencing loss of taste or smell?: No Other Medical History Have you received the Flu Vaccine for this season: No Have you received the Pneumonia Vaccine: No <PORSHA Sanchez - Last Filed: 11/19/24 23:57> ROS Obtained: Yes Systems reviewed as appropriate & no additional complaints except as documented Physical Exam <PORSHA Sanchez - Last Filed: 11/19/24 23:57> General General appearance: alert and in no apparent distress Head Head exam: atraumatic and normocephalic Eye Eye exam: Present normal appearance and EOMI Chest Chest inspection: Present symmetric chest wall rise Respiratory Respiratory exam: Present normal lung sounds bilaterally; Absent wheezes or stridor Cardiovascular Cardiovascular exam: Present regular rate, normal rhythm and tachycardia; Absent systolic murmur Abdominal Exam Abdominal exam: Present soft; Absent distention, tenderness or guarding Extremities Exam Extremities exam: Present full ROM Neurological Exam Neurological exam: Present alert and oriented X3 Psychiatric Psychiatric exam: Present normal affect and normal mood Skin Skin exam: Present warm, dry and intact Medical Decision Making <PORSHA Sanchez - Last Filed: 11/19/24 23:57> Medical Records Screening: Per USPSTF and CDC recommendations, given the prevalence of disease in our region, it is our hospital?s policy to screen for HIV and viral Hepatitis for all patients aged 18 and over and those with ongoing risk factors. Rajesh Inquiry Pt receiving controlled substance: No Vital Signs: 11/19/24 20:47 11/19/24 22:06 11/19/24 22:30 Temperature 98.4 F Temperature Source Oral Pulse Rate 94 H 100 H Pulse Rate [Right Brachial] 136 H Respiratory Rate 17 Blood Pressure 141/84 H 147/89 H Blood Pressure [Right Arm] 139/79 Blood Pressure Mean [Right Arm] 99 Blood Pressure Source Blood Pressure Source [Right Arm] Automatic Cuff Blood Pressure Position Blood Pressure Position [Right Arm] Sitting 02 Sat by Pulse Oximetry 99 99 97 Oxygen Delivery Method Room Air 11/19/24 23:01 11/19/24 23:24 Temperature 97.9 F Temperature Source Oral Pulse Rate 98 H 90 Pulse Rate [Right Brachial] Respiratory Rate 16 Blood Pressure 148/92 H 116/72 Blood Pressure [Right Arm] Blood Pressure Mean [Right Arm] Blood Pressure Source Automatic Cuff Blood Pressure Source [Right Arm] Blood Pressure Position Supine Blood Pressure Position [Right Arm] 02 Sat by Pulse Oximetry 100 Oxygen Delivery Method Room Air Lab Data Lab Results 11/19/24 19:56: SARS-CoV-2 (PCR) Not detected, Influenza A Untype (PCR) Not detected, Influenza Type B (PCR) Not detected 11/19/24 21:15: Urine Color Yellow, Urine Appearance Clear, Urine pH 5.5, Ur Specific [place] 1.025, Urine Protein Trace A, Urine Glucose (UA) Negative, Urine Ketones Negative, Urine Blood Negative, Urine Nitrate Negative, Urine Bilirubin Negative, Urine Urobilinogen 0.2, Ur Leukocyte Esterase Negative, Urine RBC None, Urine WBC 5-10, Ur Squamous Epith Cells 10-20, Urine Bacteria 1+, Urine HCG, Qual Negative 11/19/24 22:19: WBC 8.7, RBC 5.45 H, Hgb 14.4, Hct 44.2, MCV 81.1, MCH 26.4 L, MCHC 32.6, RDW 13.2, Plt Count 241, MPV 11.4 H, Neut % (Auto) 86.5 H, Lymph % (Auto) 8.2 L, [place] % (Auto) 4.7, Eos % (Auto) 0.1, Baso % (Auto) 0.2, Neut # (Auto) 7.5, Lymph # (Auto) 0.7, [place] # (Auto) 0.4, Eos # (Auto) 0.0, Baso # (Auto) 0.0, Sodium 136, Potassium 3.9, Chloride 103, Carbon Dioxide 26, Anion Gap 10.9, BUN 14, Creatinine 0.70, Estimated Creat Clear 156, Estimated GFR 100, Est GFR ( Amer) 121, Glucose 90, Calcium 9.0, Magnesium 1.8, Total Bilirubin 1.0, AST 29, ALT 37, Alkaline Phosphatase 96, Total Protein 8.1, Albumin 4.9, Globulin 3.2, Albumin/Globulin Ratio 1.5, Lipase 22 L, TSH 1.70 11/19/24 22:19 11/19/24 22:19 Orders (Tests/Meds): ED MEDICATIONS Discontinued Medications Generic Name Dose Route Start Last Admin Trade Name Freq PRN Reason Stop Dose Admin Sodium Chloride 1,000 mls @ 999 mls/hr 11/19/24 21:54 11/19/24 22:24 Sod Chlor 0.9% 1000ml Bag IV 11/19/24 22:54 999 mls/hr .Q1H1M ONE Administration Ondansetron HCl 4 mg 11/19/24 21:03 11/19/24 21:23 Ondansetron 4mg Odt SL 11/19/24 21:04 4 mg ONCE ONE Administration ORDERS Category Date Time Status CBC w/Auto Diff [Complete Blood Count Auto Diff] Stat Lab 11/19/24 22:19 Completed CMP [Comprehensive Metabolic Panel] Stat Lab 11/19/24 22:19 Completed Lipase Stat Lab 11/19/24 22:19 Completed Magnesium Stat Lab 11/19/24 22:19 Completed Rapid PCR Covid and Flu A/B Stat Lab 11/19/24 19:56 Completed TSH [Thyroid Stimulating Hormone] Stat Lab 11/19/24 22:19 Completed Urinalysis and Microscopic Stat Lab 11/19/24 21:15 Completed Urine , HCG Qual. Stat Lab 11/19/24 21:15 Completed Urine Culture Routine Micro 11/19/24 21:15 Received Medical Decision Narrative: In summary patient is a 29-year-old female who presents the emergency department for evaluation of nausea vomiting. Patient is tachycardic upon arrival upon arrival, afebrile. Unremarkable physical exam with the exception of tachycardia. Differential diagnosis includes dehydration, gastroenteritis, influenza, , UTI. Initial workup will be conducted with COVID, flu, CBC, CMP, lipase, urinalysis, hCG. Initial inventions include IV fluid bolus,. Initial workup reviewed by me unremarkable labs. Upon repeat evaluation patient has had acceptable resolution of symptoms and is tolerating p.o. Given this patient is appropriate for discharge home with prescription for Zofran. Given return precautions. <Ed Mccormick MD - Last Filed: 11/19/24 23:58> Vital Signs: 11/19/24 20:47 11/19/24 22:06 11/19/24 22:30 Temperature 98.4 F Temperature Source Oral Pulse Rate 94 H 100 H Pulse Rate [Right Brachial] 136 H Respiratory Rate 17 Blood Pressure 141/84 H 147/89 H Blood Pressure [Right Arm] 139/79 Blood Pressure Mean [Right Arm] 99 Blood Pressure Source Blood Pressure Source [Right Arm] Automatic Cuff Blood Pressure Position Blood Pressure Position [Right Arm] Sitting 02 Sat by Pulse Oximetry 99 99 97 Oxygen Delivery Method Room Air 11/19/24 23:01 11/19/24 23:24 Temperature 97.9 F Temperature Source Oral Pulse Rate 98 H 90 Pulse Rate [Right Brachial] Respiratory Rate 16 Blood Pressure 148/92 H 116/72 Blood Pressure [Right Arm] Blood Pressure Mean [Right Arm] Blood Pressure Source Automatic Cuff Blood Pressure Source [Right Arm] Blood Pressure Position Supine Blood Pressure Position [Right Arm] 02 Sat by Pulse Oximetry 100 Oxygen Delivery Method Room Air Lab Data Lab Results 11/19/24 19:56: SARS-CoV-2 (PCR) Not detected, Influenza A Untype (PCR) Not detected, Influenza Type B (PCR) Not detected 11/19/24 21:15: Urine Color Yellow, Urine Appearance Clear, Urine pH 5.5, Ur Specific [place] 1.025, Urine Protein Trace A, Urine Glucose (UA) Negative, Urine Ketones Negative, Urine Blood Negative, Urine Nitrate Negative, Urine Bilirubin Negative, Urine Urobilinogen 0.2, Ur Leukocyte Esterase Negative, Urine RBC None, Urine WBC 5-10, Ur Squamous Epith Cells 10-20, Urine Bacteria 1+, Urine HCG, Qual Negative 11/19/24 22:19: WBC 8.7, RBC 5.45 H, Hgb 14.4, Hct 44.2, MCV 81.1, MCH 26.4 L, MCHC 32.6, RDW 13.2, Plt Count 241, MPV 11.4 H, Neut % (Auto) 86.5 H, Lymph % (Auto) 8.2 L, [place] % (Auto) 4.7, Eos % (Auto) 0.1, Baso % (Auto) 0.2, Neut # (Auto) 7.5, Lymph # (Auto) 0.7, [place] # (Auto) 0.4, Eos # (Auto) 0.0, Baso # (Auto) 0.0, Sodium 136, Potassium 3.9, Chloride 103, Carbon Dioxide 26, Anion Gap 10.9, BUN 14, Creatinine 0.70, Estimated Creat Clear 156, Estimated GFR 100, Est GFR ( Amer) 121, Glucose 90, Calcium 9.0, Magnesium 1.8, Total Bilirubin 1.0, AST 29, ALT 37, Alkaline Phosphatase 96, Total Protein 8.1, Albumin 4.9, Globulin 3.2, Albumin/Globulin Ratio 1.5, Lipase 22 L, TSH 1.70 Orders (Tests/Meds): ED MEDICATIONS Discontinued Medications Generic Name Dose Route Start Last Admin Trade Name Freq PRN Reason Stop Dose Admin Sodium Chloride 1,000 mls @ 999 mls/hr 11/19/24 21:54 11/19/24 22:24 Sod Chlor 0.9% 1000ml Bag IV 11/19/24 22:54 999 mls/hr .Q1H1M ONE Administration Ondansetron HCl 4 mg 11/19/24 21:03 11/19/24 21:23 Ondansetron 4mg Odt SL 11/19/24 21:04 4 mg ONCE ONE Administration ORDERS Category Date Time Status CBC w/Auto Diff [Complete Blood Count Auto Diff] Stat Lab 11/19/24 22:19 Completed CMP [Comprehensive Metabolic Panel] Stat Lab 11/19/24 22:19 Completed Lipase Stat Lab 11/19/24 22:19 Completed Magnesium Stat Lab 11/19/24 22:19 Completed Rapid PCR Covid and Flu A/B Stat Lab 11/19/24 19:56 Completed TSH [Thyroid Stimulating Hormone] Stat Lab 11/19/24 22:19 Completed Urinalysis and Microscopic Stat Lab 11/19/24 21:15 Completed Urine , HCG Qual. Stat Lab 11/19/24 21:15 Completed Urine Culture Routine Micro 11/19/24 21:15 Received Medical Decision Narrative: In summary patient is a 29-year-old female who presents the emergency department for evaluation of nausea vomiting. Patient is tachycardic upon arrival upon arrival, afebrile. Unremarkable physical exam with the exception of tachycardia. Differential diagnosis includes dehydration, gastroenteritis, influenza, , UTI. Initial workup will be conducted with COVID, flu, CBC, CMP, lipase, urinalysis, hCG. Initial inventions include IV fluid bolus,. Initial workup reviewed by me unremarkable labs. Upon repeat evaluation patient has had acceptable resolution of symptoms and is tolerating p.o. Given this patient is appropriate for discharge home with prescription for Zofran. Given return precautions. I was consulted by the SIMIN, and we discussed the complexity of the problems being addressed.I approved the treatment and management plan for this patient?s care in the Emergency Department, thus performing a substantive portion of the medical decision making.Signed, Ed Mccormick MD MBA Critical Care <PORSHA Sanchez - Last Filed: 11/19/24 23:57> Critical Care Time Critical Care Time: No
== END 2024-11-19 23:31 | disposition home or self-care (01) ==
PROVIDERS: Physician Assistant; Emergency Provider Emergency Medicine; PCP Physician Assistant
DX: R11.10 Vomiting, unspecified (principal); M79.10 Myalgia, unspecified site; R42 Dizziness and giddiness; R51.9 Headache, unspecified; R19.7 Diarrhea, unspecified
CPT/HCPCS: 80053; 81001; 81025; 83690; 83735; 84443; 85025; 87086; 87636; 96360; 99283; J7030; Q0162

== ENCOUNTER 2024-12-02 21:09 | Emergency (ER) | payer SELFPAY ==
[2024-12-02] VITALS (10 sets, daily range): BP systolic 110–133; BP diastolic 62–78; PULSE 68–86; RESP 20; TEMP 36.8; O2SAT 95–99; BMI 36.3
--- NOTE | 2024-12-02 21:52 | ECG_ITS ---
APPROVED REPORT Exam: Resting ECG HR:81 bpm ECG Measurements Heart Rate 81 AXES TN 128 P 54 QRSd 93 QRS 56 QT 372 T 63 QTc 410 Conclusion SINUS RHYTHM Normal ECG Electronically signed by : JHONATAN SHERIFF, 12/03/2024 00:53:07
[2024-12-02] MEDS: ONDANSETRON 4MG/2ML VIAL 4 MG IV (21:54)
[2024-12-02] MEDS: FAMOTIDINE 20MG/2ML VIAL 20 MG IV (21:54)
[2024-12-02] MEDS: BELLADONNA ALKALOIDS 60 ML ML PO (21:54)
[2024-12-02] MEDS: ACETAMINOPHEN 1,000MG/100ML VIAL 1000 MG IV (21:54)
[2024-12-02] MEDS: LACTATED RINGERS 1000ML 1,000 ML 999 ML IV (21:55)
[2024-12-02 21:56] LABS: Microscopic, Urine URINE MICROSCOPIC (MICROSCOPIC)
[2024-12-02 21:59] LABS: Basophils % 0.4 % (0.1-2.0); Eosinophils # 0.1 K/mm3 (0.0-0.4); Eosinophils % 0.7 % (0.1-12.0); Hematocrit 40.6 % (37.0-47.0); Hemoglobin 13.4 g/dL (12.2-16.2); Lymphocytes # 2.1 K/mm3 (0.7-4.5); Lymphocytes % 24.3 % (10-50); Mean Corpuscular Hemoglobin 26.9 pg (27.0-31.2); Mean Corpuscular Volume 81.5 fl (81-99); Mean Platelet Volume 11.2 fl (7.4-10.4); Monocytes # 0.5 K/mm3 (0.1-1.0); Neutrophils # 5.8 K/mm3 (1.8-7.8); Neutrophils % 68.4 % (37.0-80.0); Platelet Count 292 K/mm3 (142-424); Red Blood Count 4.98 M/mm3 (4.20-5.40); Red Cell Distribution Width 12.8 % (11.5-17.5); White Blood Count 8.4 K/mm3 (4.8-10.8)
[2024-12-02 22:00] LABS: Bilirubin,Urine Negative (Negative); Blood, Urine SMALL (Negative); Glucose,Urine (UA) 250 (Negative); Ketones,Urine TRACE (Negative); Leukocyte Esterase,Urine SMALL (Negative); Nitrate,Urine POSITIVE (Negative); PH,Urine 6.5 (5.0-8.5); Protein,Urine 100 (Negative)
[2024-12-02 22:04] LABS: Albumin Level 4.7 g/dl (3.5-5.0); Chloride 103 mmol/L (98-107); Sodium 139 mmol/L (136-145)
[2024-12-02 22:07] LABS: Alanine Aminotransferase 139 U/L (12-78); Albumin/Globulin Ratio 1.5 (1.1-1.8); Alkaline Phosphatase 108 U/L (38-126); Aspartate Amino Transferase 181 U/L (14-36); Bilirubin,Total 0.6 mg/dl (0.2-1.3); Blood Urea Nitrogen 10 mg/dl (7-17); Calcium 9.3 mg/dl (8.4-10.2); Carbon Dioxide 36 mmol/L (22.0-30.0); Creatinine Clearance Estimated 170 mL/min (50-200); Estimated Glomerular Filt Rate 86 ml/min (>60); GFR (African American) 104 ML/MIN (>60); Globulin 3.1 g/dL (1.3-3.2); Glucose 81 mg/dl (74-100); Lipase 57 U/L (23-300); Total Protein,Serum 7.8 g/dl (6.3-8.2)
[2024-12-02 22:16] LABS: Appearance,Urine Slightly Cloudy (Clear); Color,Urine Orange (Yellow); Urobilinogen,Urine >=8.0 EU/dl (0.2)
[2024-12-02 22:17] LABS: HCG Qualitative, Serum Negative (Negative)
[2024-12-02 22:19] LABS: Bacteria,Urine Trace /lpf; WBC,Urine Occasional #/hpf (0-3)
--- NOTE | 2024-12-02 22:21 | CT_ITS ---
PROCEDURE INFORMATION: Exam: CT Abdomen And Pelvis With Contrast Exam date and time: 12/02/2024 10:32 PM Age: 29 years old Clinical indication: Abdominal pain; Epigastric; Additional info: Epigastric abd pain, transaminitis TECHNIQUE: Imaging protocol: Computed tomography of the abdomen and pelvis with contrast. Radiation optimization: All CT scans at this facility use at least one of these dose optimization techniques: automated exposure control; mA and/or kV adjustment per patient size (includes targeted exams where dose is matched to clinical indication); or iterative reconstruction. Contrast material: ISOVUE; Contrast volume: 75 ml; Contrast route: IV; COMPARISON: CT ANGIO CHEST PE PROTOCOL 08/31/2022 4:15 AM FINDINGS: Esophagus: The esophagus is normal. Liver: The liver is normal. Gallbladder and biliary ducts: The gallbladder is normal. Pancreas: Pancreas appears normal. Spleen: Spleen is normal Adrenal glands: The adrenal glands appear normal. Kidneys and ureters: The kidneys are normal. Stomach and bowel: Nonspecific bowel gas pattern. The stomach is distended with fluid debris Appendix: No secondary signs for appendicitis. Intraperitoneal space: No free air or fluid . Vasculature: Portal vein, splenic vein, SMV are patent. The aorta is normal. Visceral arteries are patent. Lymph nodes: Small subcentimeter mesenteric nodes coronal image [id number]. Urinary bladder: The bladder is normal. Reproductive: The uterus is normal. Bones/joints: Unremarkable. No acute fracture. Soft tissues: Unremarkable. IMPRESSION: 1. No free air or fluid . 2. Nonspecific bowel gas pattern. 3. The stomach is distended with fluid debris 4. No secondary signs for appendicitis. 5. Small subcentimeter mesenteric nodes coronal image 1001/[id number].
--- NOTE | 2024-12-02 22:28 | HMH.EDGENADL ---
Discharge Plan Disposition Patient Disposition: Home, Self-Care Condition: Good Prescriptions Prescriptions: No Action ondansetron 4 mg tablet,disintegrating 4 mg PO Q8H PRN (Reason: nausea and vomiting) 3 Days Qty: 9 0RF Referrals Follow up/Referrals: Provider,Referral, [Primary Care Provider] - See instructions Activity Restrictions/Add. Instructions Additional Instructions/Restrictions: You were evaluated in the ER and are appropriate for discharge at this time. Take Tylenol and ibuprofen at home if needed for pain, do not exceed the recommended dose on the bottle. Drink water and eat small snack each time you take these medications to avoid side effects. Make an appointment with your primary care doctor for reevaluation in 2 to 3 days. Return to the ER with new, worsening, or otherwise concerning symptoms. Clinical Impressions Clinical Impression: Mesenteric adenitis, Abdominal pain, Transaminitis Instructions Patient Instructions: DI for Acute Abdominal Pain Print Language Print Language: Armenian Discharge ED Provider: Ricardo Anglin General Adult HPI <Karma Gomez DO - Last Filed: 12/02/24 23:16> General Chief complaint: Abdominal Pain Stated complaint: abd pain, back pain Time Seen by Provider: 12/02/24 21:30 Mode of Arrival: Ambulatory Source of Information: Patient Description of Symptoms (Recalled from ER Triage Doc. by RN): epigastric pain worse after eating History of Present Illness HPI narrative: This patient is a 29-year-old female who has history of obesity presenting to the emergency department for evaluation of concern for epigastric abdominal pain radiating to her left flank and low back. Patient states that she was feeling fine until around 3:00 PM when she suddenly had epigastric pain after eating that radiated to her left flank and down her low back. She notes that she went to the bathroom after that and noted that she was having vaginal bleeding. She states that her menstrual period ended about a day ago, so this was unusual for her. She notes that she took some Tums to see if it helped, but it did not. She notes she thought she may have a UTI, so she took Azo without good improvement. No fevers, vomiting, changes in bowel movements, or other concerns noted. Related Data Previous Rx's ?Medication ?Instructions ?Recorded ondansetron 4 mg disintegrating 4 mg PO Q8H PRN nausea and 11/19/24 tablet vomiting 3 days #9 tabs Allergies Allergy/AdvReac Type Severity Reaction Status Date / Time amoxicillin (AMOXICILLIN) Allergy Intermediate I-HIVES Verified 11/19/24 20:46 PFS <Karma Gomez DO - Last Filed: 12/02/24 23:16> [facility] Disclaimer: The information contained in this section may have been updated after the patient was seen, as this information can be updated by other users. Medical History Viral syndrome Strep tonsillitis Otitis media Otitis externa Gastroenteritis Left otitis media Left otitis externa Viral gastroenteritis Contusion of left hand Sinusitis, acute maxillary Acute bacterial tonsillitis No significant past medical history Family History Other No significant family history Social History Smoking Status: Never smoker alcohol intake: never substance use type: denies use current occupational status: employed Travel in the last 8 weeks: None household members: none housing: other Have you lived/traveled outside [place] in past 30 days?: No Contact w/someone who lives/traveled outside US past 30 days?: No Exposure to someone with infectious disease in past 14 days?: No Do you have a fever (greater than 100.4 F or 38 C)?: No Have you tested positive for COVID-19: No Exposed to someone with COVID-19 in past 14 days?: No Do you have a sore throat?: No Do you have a cough?: No Do you have any weakness?: No Do you have any diarrhea?: No Are you experiencing any unusual bleeding?: No Do you have any muscle aches/pain?: No Do you have any abdominal pain?: No Are you experiencing loss of taste or smell?: No Other Medical History Have you received the Flu Vaccine for this season: No Have you received the Pneumonia Vaccine: No <Karma Gomez DO - Last Filed: 12/02/24 23:16> ROS Obtained: Yes All systems reviewed & no additional complaints except as documented Physical Exam <Karma Gomez DO - Last Filed: 12/02/24 23:16> General General appearance: alert and in no apparent distress Head Head exam: atraumatic and normocephalic Eye Eye exam: Present normal appearance, PERRL and EOMI ENT ENT exam: Present normal exam, normal oropharynx, mucous membranes moist and normal external ear exam Neck Neck exam: Present normal inspection, full ROM and trachea midline; Absent tenderness Chest Chest inspection: Present normal inspection and symmetric chest wall rise; Absent tenderness Respiratory Respiratory exam: Present normal lung sounds bilaterally; Absent respiratory distress, wheezes, stridor or accessory muscle use Cardiovascular Cardiovascular exam: Present regular rate and normal rhythm Abdominal Exam Abdominal exam: Present soft and tenderness (Epigastric); Absent distention, guarding, rebound or rigidity Extremities Exam Extremities exam: Present normal inspection, full ROM and normal capillary refill; Absent tenderness or edema Back Exam Back exam: Present normal inspection and full ROM; Absent tenderness Neurological Exam Neurological exam: Present alert, oriented X3, CN II-XII intact and normal gait; Absent motor sensory deficit Psychiatric Psychiatric exam: Present normal affect and normal mood Skin Skin exam: Present warm and dry Medical Decision Making <Karma Gomez, DO - Last Filed: 12/02/24 23:16> Medical Records Medical records reviewed: Yes I reviewed the patient's medical records. Screening: Per USPSTF and CDC recommendations, given the prevalence of disease in our region, it is our hospital?s policy to screen for HIV and viral Hepatitis for all patients aged 18 and over and those with ongoing risk factors. Rajesh Inquiry Pt receiving controlled substance: No Vital Signs: 12/02/24 21:24 12/02/24 21:47 12/02/24 22:00 Temperature 98.2 F Temperature Source Oral Pulse Rate 75 79 Pulse Rate [Right Brachial] 86 Respiratory Rate 20 Blood Pressure 133/77 Blood Pressure [Right Arm] 117/78 Blood Pressure Mean [Right Arm] 91 Blood Pressure Source Blood Pressure Source [Right Arm] Automatic Cuff Blood Pressure Position Blood Pressure Position [Right Arm] Sitting 02 Sat by Pulse Oximetry 99 96 96 Oxygen Delivery Method Room Air Room Air 12/02/24 22:15 12/02/24 22:30 12/02/24 22:46 Temperature Temperature Source Pulse Rate 75 77 81 Pulse Rate [Right Brachial] Respiratory Rate Blood Pressure 111/73 120/66 117/64 Blood Pressure [Right Arm] Blood Pressure Mean [Right Arm] Blood Pressure Source Blood Pressure Source [Right Arm] Blood Pressure Position Blood Pressure Position [Right Arm] 02 Sat by Pulse Oximetry 95 96 96 Oxygen Delivery Method Room Air Room Air Room Air 12/02/24 23:00 12/02/24 23:15 12/02/24 23:30 Temperature Temperature Source Pulse Rate 71 73 78 Pulse Rate [Right Brachial] Respiratory Rate Blood Pressure 115/65 110/64 118/63 Blood Pressure [Right Arm] Blood Pressure Mean [Right Arm] Blood Pressure Source Blood Pressure Source [Right Arm] Blood Pressure Position Blood Pressure Position [Right Arm] 02 Sat by Pulse Oximetry 95 95 95 Oxygen Delivery Method 12/02/24 23:45 12/03/24 00:01 12/03/24 00:10 Temperature 97.9 F Temperature Source Oral Pulse Rate 68 77 72 Pulse Rate [Right Brachial] Respiratory Rate 16 Blood Pressure 111/62 113/78 113/78 Blood Pressure [Right Arm] Blood Pressure Mean [Right Arm] Blood Pressure Source Automatic Cuff Blood Pressure Source [Right Arm] Blood Pressure Position Supine Blood Pressure Position [Right Arm] 02 Sat by Pulse Oximetry 95 97 Oxygen Delivery Method Room Air Lab Data Lab results reviewed: Yes I reviewed the patient's lab results. Lab Results 12/02/24 21:47: WBC 8.4, RBC 4.98, Hgb 13.4, Hct 40.6, MCV 81.5, MCH 26.9 L, MCHC 33.0, RDW 12.8, Plt Count 292, MPV 11.2 H, Neut % (Auto) 68.4, Lymph % (Auto) 24.3, [place] % (Auto) 6.0, Eos % (Auto) 0.7, Baso % (Auto) 0.4, Neut # (Auto) 5.8, Lymph # (Auto) 2.1, [place] # (Auto) 0.5, Eos # (Auto) 0.1, Baso # (Auto) 0.0, Sodium 139, Potassium 4.0, Chloride 103, Carbon Dioxide 36 H, Anion Gap 4.0 L, BUN 10, Creatinine 0.80, Estimated Creat Clear 170, Estimated GFR 86, Est GFR ( Amer) 104, Glucose 81, Calcium 9.3, Total Bilirubin 0.6, AST 181 H, ALT 139 H, Alkaline Phosphatase 108, Total Protein 7.8, Albumin 4.7, Globulin 3.1, Albumin/Globulin Ratio 1.5, Lipase 57, Serum HCG, Qual Negative, HCV Ab RENETTA w/Rflx PCR Qn Negative, Monoscreen Negative, HIV Ag/Ab Combo Qual Negative 12/02/24 : Urine Color Phelps, Urine Appearance Slightly cloudy, Urine pH 6.5, Ur Specific [place] 1.020, Urine Protein 100, Urine Glucose (UA) 250, Urine Ketones Trace, Urine Blood Small, Urine Nitrate Positive A, Urine Bilirubin Negative, Urine Urobilinogen >=8.0, Ur Leukocyte Esterase Small, Urine RBC 3-5, Urine WBC Occasional, Ur Squamous Epith Cells 3-5, Urine Bacteria Trace 12/02/24 21:47 12/02/24 21:47 Orders (Tests/Meds): ED MEDICATIONS Discontinued Medications Generic Name Dose Route Start Last Admin Trade Name Freq PRN Reason Stop Dose Admin Acetaminophen 1,000 mg 12/02/24 21:43 12/02/24 21:54 Acetaminophen 1,000mg/100ml Vial IV 12/02/24 21:44 1,000 mg ONCE ONE Administration Belladonna Alkaloids 60 ml 12/02/24 21:43 12/02/24 21:54 Belladonna Alkaloids 60 Ml Ml PO 12/02/24 21:44 60 ml ONCE ONE Administration Famotidine 20 mg 12/02/24 21:43 12/02/24 21:54 Famotidine 20mg/2ml Vial IV 12/02/24 21:44 20 mg ONCE ONE Administration Lactated Ringer's 1,000 mls @ 999 mls/hr 12/02/24 21:43 12/02/24 21:55 Lactated Ringer's 1000 Ml Bag IV 12/02/24 22:43 999 mls/hr .Q1H1M ONE Administration Iopamidol 75 ml 12/02/24 22:41 12/02/24 22:46 Iopamidol-370 (76%);100ml Bottle IV 12/02/24 22:42 75 ml ONCE ONE Administration Ondansetron HCl 4 mg 12/02/24 21:43 12/02/24 21:54 Ondansetron 4mg/2ml Vial IV 12/02/24 21:44 4 mg ONCE ONE Administration Sodium Chloride 8 ml 12/02/24 21:43 Sodium Chloride 0.9% 10ml Vial IV 01/01/25 21:42 NEEDED PRN dilute pepcid Sodium Chloride 10 ml 12/02/24 22:41 12/02/24 22:46 Sodium Chloride 0.9% 10ml Syr (Rad Only) IV 01/01/25 22:40 10 ml NEEDED PRN Administration Maintain IV Site ORDERS Category Date Time Status CT abdomen pelvis w con Stat Cat Scan 12/02/24 22:21 Completed Complete Blood Count Auto Diff Stat Lab 12/02/24 21:47 Completed Comprehensive Metabolic Panel Stat Lab 12/02/24 21:47 Completed HIV Combo Routine Lab 12/02/24 21:47 Completed Hepatitis C Ab Qual. W/ RFX Routine Lab 12/02/24 21:47 Completed Lipase Stat Lab 12/02/24 21:47 Completed Monoscreen (Rapid) Stat Lab 12/02/24 21:47 Completed Serum [HCG Qualitative, Serum] Stat Lab 12/02/24 21:47 Completed UA [Urinalysis and Microscopic] Stat Lab 12/02/24 Completed Urine Culture Stat Micro 12/02/24 21:50 Received ECG Data Tracing #1: I reviewed this ECG and interpreted as documented below: Normal sinus rhythm with a ventricular rate of [address] changes concerning for ischemia. Normal axis and intervals ECG initial impression date: 12/02/24 ECG initial impression time: 22:06 Medical Decision Narrative: In summary, this patient is a 29-year-old female presenting to the Emergency Department for evaluation of epigastric pain, left flank pain, vaginal bleeding started suddenly this afternoon. She did just finished her menstrual period. differential diagnoses considered include but are not limited to , ectopic , pancreatitis, cholecystitis, gastritis, peptic ulcer disease, pyelonephritis, ureterolithiasis. Ruling out the most morbid conditions drove assessment. It should be noted patient's history includes obesity which is not at goal therapy. This complicates all aspects of care by increasing patient's risk for morbidity. I reviewed patient's past medical records and noted prior ED evaluation 11/19/2024 for vomiting. Labs at that time were reassuring so patient was discharged home with prescription for Zofran.. On exam, the patient is sitting upright in no acute distress. She has epigastric tenderness but otherwise exam is reassuring. Workup included CBC, CMP, lipase, test, urinalysis, urine culture, EKG. EKG obtained is reassuring. Patient was given a bolus of IV fluids as well as IV acetaminophen, Pepcid, oral GI cocktail for symptomatic improvement. Labs obtained demonstrated reassuring CBC with no significant leukocytosis or anemia, mild transaminitis with normal bilirubin, normal lipase. Urine is positive for nitrates but is contaminated with Azo. Urine culture was sent and is pending. test is negative. Given abnormal labs, I decided to obtain CT abdomen pelvis with IV contrast. Patient At the Oncoming Provider, Dr. Anglin, with CT Pending. <Ricardo Anglin MD - Last Filed: 12/03/24 02:32> Vital Signs: 12/02/24 21:24 12/02/24 21:47 12/02/24 22:00 Temperature 98.2 F Temperature Source Oral Pulse Rate 75 79 Pulse Rate [Right Brachial] 86 Respiratory Rate 20 Blood Pressure 133/77 Blood Pressure [Right Arm] 117/78 Blood Pressure Mean [Right Arm] 91 Blood Pressure Source Blood Pressure Source [Right Arm] Automatic Cuff Blood Pressure Position Blood Pressure Position [Right Arm] Sitting 02 Sat by Pulse Oximetry 99 96 96 Oxygen Delivery Method Room Air Room Air 12/02/24 22:15 12/02/24 22:30 12/02/24 22:46 Temperature Temperature Source Pulse Rate 75 77 81 Pulse Rate [Right Brachial] Respiratory Rate Blood Pressure 111/73 120/66 117/64 Blood Pressure [Right Arm] Blood Pressure Mean [Right Arm] Blood Pressure Source Blood Pressure Source [Right Arm] Blood Pressure Position Blood Pressure Position [Right Arm] 02 Sat by Pulse Oximetry 95 96 96 Oxygen Delivery Method Room Air Room Air Room Air 12/02/24 23:00 12/02/24 23:15 12/02/24 23:30 Temperature Temperature Source Pulse Rate 71 73 78 Pulse Rate [Right Brachial] Respiratory Rate Blood Pressure 115/65 110/64 118/63 Blood Pressure [Right Arm] Blood Pressure Mean [Right Arm] Blood Pressure Source Blood Pressure Source [Right Arm] Blood Pressure Position Blood Pressure Position [Right Arm] 02 Sat by Pulse Oximetry 95 95 95 Oxygen Delivery Method 12/02/24 23:45 12/03/24 00:01 12/03/24 00:10 Temperature 97.9 F Temperature Source Oral Pulse Rate 68 77 72 Pulse Rate [Right Brachial] Respiratory Rate 16 Blood Pressure 111/62 113/78 113/78 Blood Pressure [Right Arm] Blood Pressure Mean [Right Arm] Blood Pressure Source Automatic Cuff Blood Pressure Source [Right Arm] Blood Pressure Position Supine Blood Pressure Position [Right Arm] 02 Sat by Pulse Oximetry 95 97 Oxygen Delivery Method Room Air Lab Data Lab Results 12/02/24 21:47: WBC 8.4, RBC 4.98, Hgb 13.4, Hct 40.6, MCV 81.5, MCH 26.9 L, MCHC 33.0, RDW 12.8, Plt Count 292, MPV 11.2 H, Neut % (Auto) 68.4, Lymph % (Auto) 24.3, [place] % (Auto) 6.0, Eos % (Auto) 0.7, Baso % (Auto) 0.4, Neut # (Auto) 5.8, Lymph # (Auto) 2.1, [place] # (Auto) 0.5, Eos # (Auto) 0.1, Baso # (Auto) 0.0, Sodium 139, Potassium 4.0, Chloride 103, Carbon Dioxide 36 H, Anion Gap 4.0 L, BUN 10, Creatinine 0.80, Estimated Creat Clear 170, Estimated GFR 86, Est GFR ( Amer) 104, Glucose 81, Calcium 9.3, Total Bilirubin 0.6, AST 181 H, ALT 139 H, Alkaline Phosphatase 108, Total Protein 7.8, Albumin 4.7, Globulin 3.1, Albumin/Globulin Ratio 1.5, Lipase 57, Serum HCG, Qual Negative, HCV Ab RENETTA w/Rflx PCR Qn Negative, Monoscreen Negative, HIV Ag/Ab Combo Qual Negative 12/02/24 : Urine Color [place]hel[place], Urine Appearance Slightly cloudy, Urine pH 6.5, Ur Specific [place] 1.020, Urine Protein 100, Urine Glucose (UA) 250, Urine Ketones Trace, Urine Blood Small, Urine Nitrate Positive A, Urine Bilirubin Negative, Urine Urobilinogen >=8.0, Ur Leukocyte Esterase Small, Urine RBC 3-5, Urine WBC Occasional, Ur Squamous Epith Cells 3-5, Urine Bacteria Trace Orders (Tests/Meds): ED MEDICATIONS Discontinued Medications Generic Name Dose Route Start Last Admin Trade Name Freq PRN Reason Stop Dose Admin Acetaminophen 1,000 mg 12/02/24 21:43 12/02/24 21:54 Acetaminophen 1,000mg/100ml Vial IV 12/02/24 21:44 1,000 mg ONCE ONE Administration Belladonna Alkaloids 60 ml 12/02/24 21:43 12/02/24 21:54 Belladonna Alkaloids 60 Ml Ml PO 12/02/24 21:44 60 ml ONCE ONE Administration Famotidine 20 mg 12/02/24 21:43 12/02/24 21:54 Famotidine 20mg/2ml Vial IV 12/02/24 21:44 20 mg ONCE ONE Administration Lactated Ringer's 1,000 mls @ 999 mls/hr 12/02/24 21:43 12/02/24 21:55 Lactated Ringer's 1000 Ml Bag IV 12/02/24 22:43 999 mls/hr .Q1H1M ONE Administration Iopamidol 75 ml 12/02/24 22:41 12/02/24 22:46 Iopamidol-370 (76%);100ml Bottle IV 12/02/24 22:42 75 ml ONCE ONE Administration Ondansetron HCl 4 mg 12/02/24 21:43 12/02/24 21:54 Ondansetron 4mg/2ml Vial IV 12/02/24 21:44 4 mg ONCE ONE Administration Sodium Chloride 8 ml 12/02/24 21:43 Sodium Chloride 0.9% 10ml Vial IV 01/01/25 21:42 NEEDED PRN dilute pepcid Sodium Chloride 10 ml 12/02/24 22:41 12/02/24 22:46 Sodium Chloride 0.9% 10ml Syr (Rad Only) IV 01/01/25 22:40 10 ml NEEDED PRN Administration Maintain IV Site ORDERS Category Date Time Status CT abdomen pelvis w con Stat Cat Scan 12/02/24 22:21 Completed Complete Blood Count Auto Diff Stat Lab 12/02/24 21:47 Completed Comprehensive Metabolic Panel Stat Lab 12/02/24 21:47 Completed HIV Combo Routine Lab 12/02/24 21:47 Completed Hepatitis C Ab Qual. W/ RFX Routine Lab 12/02/24 21:47 Completed Lipase Stat Lab 12/02/24 21:47 Completed Monoscreen (Rapid) Stat Lab 12/02/24 21:47 Completed Serum [HCG Qualitative, Serum] Stat Lab 12/02/24 21:47 Completed UA [Urinalysis and Microscopic] Stat Lab 12/02/24 Completed Urine Culture Stat Micro 12/02/24 21:50 Received Medical Decision Narrative: In summary, this patient is a 29-year-old female presenting to the Emergency Department for evaluation of epigastric pain, left flank pain, vaginal bleeding started suddenly this afternoon. She did just finished her menstrual period. differential diagnoses considered include but are not limited to , ectopic , pancreatitis, cholecystitis, gastritis, peptic ulcer disease, pyelonephritis, ureterolithiasis. Ruling out the most morbid conditions drove assessment. It should be noted patient's history includes obesity which is not at goal therapy. This complicates all aspects of care by increasing patient's risk for morbidity. I reviewed patient's past medical records and noted prior ED evaluation 11/19/2024 for vomiting. Labs at that time were reassuring so patient was discharged home with prescription for Zofran.. On exam, the patient is sitting upright in no acute distress. She has epigastric tenderness but otherwise exam is reassuring. Workup included CBC, CMP, lipase, test, urinalysis, urine culture, EKG. EKG obtained is reassuring. Patient was given a bolus of IV fluids as well as IV acetaminophen, Pepcid, oral GI cocktail for symptomatic improvement. Labs obtained demonstrated reassuring CBC with no significant leukocytosis or anemia, mild transaminitis with normal bilirubin, normal lipase. Urine is positive for nitrates but is contaminated with Azo. Urine culture was sent and is pending. test is negative. Given abnormal labs, I decided to obtain CT abdomen pelvis with IV contrast. Patient At the Oncoming Provider, Dr. Anglin, with CT Pending. Anglin: Upon my assumption of care patient is stable, resting comfortably. I reviewed labs and agree with the assessment and plan from Dr. Gomez. Labs are notable for mild transaminitis which is new. I added Monospot test which is negative. Patient has nitrate positive in her urine which is likely secondary to using Azo, UA is otherwise negative for findings of infection. CT abdomen pelvis personally interpreted does not demonstrate acute intra-abdominal pathology, patient does have liquid in the stomach and stomach is somewhat distended but there is no evidence of obstruction. See radiology read for final interpretation which does comment on mesenteric nodes. This could be consistent with mesenteric adenitis and could explain the patient's symptoms. On reassessment patient is resting comfortably and pain-free at this time. She is tolerating oral intake and I believe she is appropriate for discharge. She already has Zofran at home so I do not believe any additional prescriptions are indicated at this time. Patient was given instructions on symptomatic management, follow up instructions, and return precautions for the emergency department. Patient indicated understanding and was discharged in stable condition. Critical Care <Karma Gomez DO - Last Filed: 12/02/24 23:16> Critical Care Time Critical Care Time: No
[2024-12-02] MEDS: SODIUM CHLORIDE 0.9% 10ML SYR (RAD ONLY) 10 ML IV (22:46)
[2024-12-02] MEDS: IOPAMIDOL-370 (76%);100ML BOTTLE 75 ML IV (22:46)
[2024-12-02 22:59] LABS: HIV Combo NEGATIVE (Negative)
[2024-12-02 23:38] LABS: Monoscreen (Rapid) Negative (Negative)
[2024-12-03 00:01] VITALS: BP 113/78; PULSE 77; O2SAT 97
[2024-12-03 00:04] LABS: Hepatitis C Ab Qual. W/ RFX NEGATIVE (Negative)
[2024-12-03 00:10] VITALS: BP 113/78; PULSE 72; RESP 16; TEMP 36.6; O2SAT 98
== END 2024-12-03 00:11 | disposition home or self-care (01) ==
PROVIDERS: Emergency Medicine; Emergency Provider Emergency Medicine
DX: I88.0 Nonspecific mesenteric lymphadenitis (principal); K31.89 Other diseases of stomach and duodenum; R74.01 Elevation of levels of liver transaminase levels; R10.13 Epigastric pain; M54.50 Low back pain, unspecified; N93.9 Abnormal uterine and vaginal bleeding, unspecified; E66.9 Obesity, unspecified; Z68.36 Body mass index [BMI] 36.0-36.9, adult
CPT/HCPCS: 74177; 80053; 81001; 83690; 84703; 85025; 86318; 86803; 87086; 87389; 93005; 96360; 96361; 96374; 96375; 99284; 99285; J0131; J2405; J7120; Q9967; S0028

== ENCOUNTER 2025-05-05 21:06 | Emergency (ER) | payer SELFPAY ==
--- NOTE | 2025-05-05 21:13 | ED_ITS ---
<Statement entered by Roopa Shelton DO - 05/07/25 15:53> I was consulted by the SIMIN, and we discussed the complexity of problems being addressed. I approve the treatment and management plan for this patient's care in the emergency department, thus performing a substantial portion of the medical decision making. Roopa Shelton DO Discharge Plan Disposition Patient Disposition: Home, Self-Care Condition: Good Prescriptions Prescriptions: New methocarbamol 500 mg tablet 500 mg PO BID Qty: 20 0RF lidocaine 5 % adhesive patch,medicated 1 patch topical DAILY Qty: 15 0RF Rx Instructions: leave on most painful area for up to 12 hrs No Action ondansetron 4 mg tablet,disintegrating 4 mg PO Q8H PRN (Reason: nausea and vomiting) 3 Days Qty: 9 0RF Referrals Follow up/Referrals: Provider,Referral, MD [Referring, Medical] - See instructions Activity Restrictions/Add. Instructions Additional Instructions/Restrictions: Take Tylenol and ibuprofen and I will send you with a muscle relaxer and lidocaine patches which you can use for your symptoms. Your urine does not need to be treated at this time but if it grows any bacteria that requires antibiotics we will call you. Return to the emergency department for any acute or worsening symptoms. Clinical Impressions Clinical Impression: Acute flank pain Instructions Patient Instructions: DI for Acute Abdominal Pain Print Language Print Language: Maori Discharge ED Provider: Roopa Shelton General Adult HPI <PORSHA Guardado - Last Filed: 05/05/25 21:56> General Chief complaint: Abdominal Pain Stated complaint: left side rib pain Time Seen by Provider: 05/05/25 21:10 Mode of Arrival: Ambulatory Source of Information: Patient and Medical Record Limitations: No Limitations History of Present Illness HPI narrative: 29-year-old female presents the emergency department with a 2-day history of left-sided flank pain, patient denies any trauma or injury per history, patient states that is in her left flank/chest radiates into her left upper abdomen, she endorses nausea no vomiting no fever no chills no cough no congestion no recent sick contacts or illnesses, no overt chest pain, does have shortness of air when taking a deep breath , denies any vomiting, denies any constipation diarrhea melena hematochezia hematemesis hemoptysis, denies any urinary type otology, denies any vaginal type symptomatology, patient has no other real relevant past medical history takes no other medications at home, has not yet taken anything besides Tylenol for this pain which provided little to no relief, patient denies any alcohol tobacco or drug use, initial triage vitals are unremarkable. Please note that above description of symptoms, in this electronic medical record under categorization of recalled from ER triage doctor by RN are reflective of an initial nursing assessment, however, is not reflective of my full history and physical exam that was personally taken and clarified. Consequentially, this preceding description of symptoms, which may include the patient's categorized chief complaint in the EMR, do not reflect my personal clinical impression, and the ultimate description of history of present illness and patient stated complaints should be deferred to this section of the note. Unless stated otherwise or congruent with this section of the note, additional signs, symptoms, or incongruence should be interpreted as inaccurate with my clinical impression. Onset (ago): day(s) Related Data Previous Rx's ?Medication ?Instructions ?Recorded ondansetron 4 mg disintegrating 4 mg PO Q8H PRN nausea and 11/19/24 tablet vomiting 3 days #9 tabs lidocaine 5 % topical patch 1 patch topical DAILY #15 ea 05/05/25 methocarbamol 500 mg tablet 500 mg PO BID #20 tabs Allergies Allergy/AdvReac Type Severity Reaction Status Date / Time amoxicillin (AMOXICILLIN) Allergy Intermediate I-HIVES Verified 11/19/24 20:46 [facility] <PORSHA Guardado - Last Filed: 05/05/25 21:56> [facility] Disclaimer: The information contained in this section may have been updated after the patient was seen, as this information can be updated by other users. Medical History Viral syndrome Strep tonsillitis Otitis media Otitis externa Gastroenteritis Left otitis media Left otitis externa Viral gastroenteritis Contusion of left hand Sinusitis, acute maxillary Acute bacterial tonsillitis No significant past medical history Family History Other No significant family history Social History Smoking Status: Never smoker alcohol intake: never substance use type: denies use current occupational status: employed Travel in the last 8 weeks?: None household members: none housing: other Have you lived/traveled outside [place] in past 30 days?: No Contact w/someone who lives/traveled outside US past 30 days?: No Exposure to someone with infectious disease in past 14 days?: No Do you have a fever (greater than 100.4 F or 38 C)?: No Have you tested positive for COVID-19?: No Exposed to someone with COVID-19 in past 14 days?: No Do you have a sore throat?: No Do you have a cough?: No Do you have any weakness?: No Do you have any diarrhea?: No Are you experiencing any unusual bleeding?: No Do you have any muscle aches/pain?: No Do you have any abdominal pain?: No Are you experiencing loss of taste or smell?: No Other Medical History Have you received the Flu Vaccine for this season: No Have you received the Pneumonia Vaccine: No <PORSHA Guardado - Last Filed: 05/05/25 21:56> ROS Obtained: Yes All systems reviewed & no additional complaints except as documented Physical Exam <PORSHA Guardado - Last Filed: 05/05/25 21:56> General General appearance: alert and in no apparent distress Comment: Uncomfortable appearing female in obvious pain Head Head exam: atraumatic and normocephalic Eye Eye exam: Present PERRL and EOMI ENT ENT exam: Present mucous membranes moist Neck Neck exam: Present normal inspection Chest Chest inspection: Present normal inspection and symmetric chest wall rise Respiratory Respiratory exam: Present normal lung sounds bilaterally and other; Absent respiratory distress, wheezes or stridor Cardiovascular Cardiovascular exam: Present regular rate and normal rhythm Abdominal Exam Abdominal exam: Present soft and tenderness; Absent guarding, rebound or rigidity Abdominal tenderness: Present LUQ, LLQ and mild Extremities Exam Extremities exam: Present normal inspection Back Exam Back exam: Present CVA tenderness (L) Neurological Exam Neurological exam: Present alert and oriented X3 Psychiatric Psychiatric exam: Present normal affect Skin Skin exam: Present warm and dry Medical Decision Making <PORSHA Guardado - Last Filed: 05/05/25 21:56> Medical Records Medical records reviewed: Yes I reviewed the patient's medical records. Screening: Per USPSTF and CDC recommendations, given the prevalence of disease in our region, it is our hospital?s policy to screen for HIV and viral Hepatitis for all patients aged 18 and over and those with ongoing risk factors. Rajesh Inquiry Pt receiving controlled substance: No Rajesh was queried for this patient: No Vital Signs: 05/05/25 21:15 05/05/25 21:52 05/05/25 23:55 Temperature 98.1 F 97.9 F Temperature Source Oral Oral Pulse Rate 80 68 Pulse Rate [Left] 88 Respiratory Rate 20 14 Blood Pressure 139/93 H 102/60 L Blood Pressure [Right Arm] 98/79 L Blood Pressure Mean 116 Blood Pressure Mean [Right Arm] 85 Blood Pressure Source Automatic Cuff Blood Pressure Source [Right Arm] Automatic Cuff 02 Sat by Pulse Oximetry 100 98 Oxygen Delivery Method Room Air Room Air Lab Data Lab results reviewed: Yes I reviewed the patient's lab results. Lab Results 05/05/25 21:30: Urine Color Yellow, Urine Appearance Clear, Urine pH 6.5, Ur Specific [place] 1.025, Urine Protein Negative, Urine Glucose (UA) Negative, Urine Ketones Negative, Urine Blood 1+ A, Urine Nitrate Negative, Urine Bilirubin Negative, Urine Urobilinogen 1.0, Ur Leukocyte Esterase Negative, Urine RBC 3-5, Urine WBC Occasional, Ur Squamous Epith Cells Occasional, Urine Bacteria Trace 05/05/25 21:31: Urine HCG, Qual Negative, Urine Opiates Screen Negative, Urine Methadone Screen Negative, Ur Barbituates Screen Negative, Ur Phencyclidine Scrn Negative, Ur Amphetamines Screen Negative, U Benzodiazepines Scrn Negative, Urine Cocaine Screen Negative, U Marijuana (THC) Screen Negative 05/05/25 21:35: WBC 8.0, RBC 4.70, Hgb 12.6, Hct 38.2, MCV 81.3, MCH 26.8 L, MCHC 33.0, RDW 13.2, Plt Count 274, MPV 11.1 H, Neut % (Auto) 58.9, Lymph % (Auto) 33.0, [place] % (Auto) 6.7, Eos % (Auto) 0.7, Baso % (Auto) 0.5, Neut # (Auto) 4.7, Lymph # (Auto) 2.7, Rab[place] # (Auto) 0.5, Eos # (Auto) 0.1, Baso # (Auto) 0.0, D-Dimer 0.70 H, Sodium 142, Potassium 3.7, Chloride 105, Carbon Dioxide 28, Anion Gap 12.7, BUN 13, Creatinine 1.00, Estimated Creat Clear 130, Estimated GFR 67, Est GFR ( Amer) 80, Glucose 91, Calcium 9.1, Total Bilirubin 0.4, AST 29, ALT 37, Alkaline Phosphatase 82, Troponin I < 0.01, NT-Pro-B Natriuret Pep 79.9, Total Protein 8.0, Albumin 4.6, Globulin 3.4 H, Albumin/Globulin Ratio 1.4, Lipase 37 05/05/25 22:12: Lactate 0.7 05/05/25 21:35 05/05/25 21:35 Orders (Tests/Meds): ED MEDICATIONS Discontinued Medications Generic Name Dose Route Start Last Admin Trade Name Freq PRN Reason Stop Dose Admin Iopamidol 80 ml 05/05/25 22:03 05/05/25 22:04 Iopamidol-370 (76%);100ml Bottle IV 05/05/25 22:04 80 ml ONCE ONE Administration Ketorolac Tromethamine 15 mg 05/05/25 21:17 05/05/25 21:27 Ketorolac 30mg/Ml Vial IV 05/05/25 21:18 15 mg ONCE ONE Administration Ondansetron HCl 4 mg 05/05/25 21:17 05/05/25 21:27 Ondansetron 4mg/2ml Vial IV 05/05/25 21:18 4 mg ONCE ONE Administration Sodium Chloride 40 ml 05/05/25 22:03 05/05/25 22:04 0.9 % Sodium Chloride 50 Ml Vial IV 05/05/25 22:04 40 ml ONCE ONE Administration Sodium Chloride 10 ml 05/05/25 22:03 05/05/25 22:04 Sodium Chloride 0.9% 10ml Syr (Rad Only) IV 06/04/25 22:02 10 ml NEEDED PRN Administration Maintain IV Site ORDERS Category Date Time Status CT abdomen pelvis w con Stat Cat Scan 05/05/25 21:[address] angio chest PE protocol Stat Cat Scan 05/05/25 21:55 Completed XR chest portable Stat Exams 05/05/25 21:17 Completed Complete Blood Count Auto Diff Stat Lab 05/05/25 21:35 Completed Comprehensive Metabolic Panel Stat Lab 05/05/25 21:35 Completed D-Dimer Stat Lab 05/05/25 21:35 Completed Drug Screen,Urine Stat Lab 05/05/25 21:31 Completed Lactic Acid Stat Lab 05/05/25 22:12 Completed Lipase Stat Lab 05/05/25 21:35 Completed NT Pro Brain Natriuretic Pep. Stat Lab 05/05/25 21:35 Completed Troponin I Stat Lab 05/05/25 21:35 Completed Urinalysis and Microscopic Stat Lab 05/05/25 21:30 Completed Urine , HCG Qual. Stat Lab 05/05/25 21:31 Completed Medical Decision Narrative: 29-year-old female presents to the emergency department with left-sided flank pain/rib pain, with some radiation to her abdomen nausea for 2 days, differential diagnose include but not limited to, pancreatitis, diverticulitis, acute UTI, acute pyelonephritis, nephrolithiasis, ureterolithiasis, pneumonia, cardiac arrhythmia, electrolyte disturbance, ACS, costochondritis, pneumonia, PE, other musculoskeletal sprain/strain, pneumothorax, colitis, ileitis, gastritis among others. Will obtain basic laboratory studies, CXR, EKG, UDS lipase lactate proBNP troponin urinalysis, obtain CT of the pelvis with contrast, CTA chest with and without contrast PE protocol, give 15 mg IV Toradol and 4 mg IV Zofran for pain and nausea. Will obtain urine hCG. CBC unremarkable hCG qualitative negative I discussed this patient's case with the attending physician at shift change she will be assuming amended the patient's care/workup, disposition is pending laboratory studies and imaging studies. <Roopa Shelton, DO - Last Filed: 05/07/25 15:52> Vital Signs: 05/05/25 21:15 05/05/25 21:52 05/05/25 23:55 Temperature 98.1 F 97.9 F Temperature Source Oral Oral Pulse Rate 80 68 Pulse Rate [Left] 88 Respiratory Rate 20 14 Blood Pressure 139/93 H 102/60 L Blood Pressure [Right Arm] 98/79 L Blood Pressure Mean 116 Blood Pressure Mean [Right Arm] 85 Blood Pressure Source Automatic Cuff Blood Pressure Source [Right Arm] Automatic Cuff 02 Sat by Pulse Oximetry 100 98 Oxygen Delivery Method Room Air Room Air Lab Data Lab Results 05/05/25 21:30: Urine Color Yellow, Urine Appearance Clear, Urine pH 6.5, Ur Specific [place] 1.025, Urine Protein Negative, Urine Glucose (UA) Negative, Urine Ketones Negative, Urine Blood 1+ A, Urine Nitrate Negative, Urine Bilirubin Negative, Urine Urobilinogen 1.0, Ur Leukocyte Esterase Negative, Urine RBC 3-5, Urine WBC Occasional, Ur Squamous Epith Cells Occasional, Urine Bacteria Trace 05/05/25 21:31: Urine HCG, Qual Negative, Urine Opiates Screen Negative, Urine Methadone Screen Negative, Ur Barbituates Screen Negative, Ur Phencyclidine Scrn Negative, Ur Amphetamines Screen Negative, U Benzodiazepines Scrn Negative, Urine Cocaine Screen Negative, U Marijuana (THC) Screen Negative 05/05/25 21:35: WBC 8.0, RBC 4.70, Hgb 12.6, Hct 38.2, MCV 81.3, MCH 26.8 L, MCHC 33.0, RDW 13.2, Plt Count 274, MPV 11.1 H, Neut % (Auto) 58.9, Lymph % (Auto) 33.0, Rabun % (Auto) 6.7, Eos % (Auto) 0.7, Baso % (Auto) 0.5, Neut # (Auto) 4.7, Lymph # (Auto) 2.7, [place] # (Auto) 0.5, Eos # (Auto) 0.1, Baso # (Auto) 0.0, D-Dimer 0.70 H, Sodium 142, Potassium 3.7, Chloride 105, Carbon Dioxide 28, Anion Gap 12.7, BUN 13, Creatinine 1.00, Estimated Creat Clear 130, Estimated GFR 67, Est GFR ( Amer) 80, Glucose 91, Calcium 9.1, Total Bilirubin 0.4, AST 29, ALT 37, Alkaline Phosphatase 82, Troponin I < 0.01, NT-Pro-B Natriuret Pep 79.9, Total Protein 8.0, Albumin 4.6, Globulin 3.4 H, Albumin/Globulin Ratio 1.4, Lipase 37 05/05/25 22:12: Lactate 0.7 Orders (Tests/Meds): ED MEDICATIONS Discontinued Medications Generic Name Dose Route Start Last Admin Trade Name Freq PRN Reason Stop Dose Admin Iopamidol 80 ml 05/05/25 22:03 05/05/25 22:04 Iopamidol-370 (76%);100ml Bottle IV 05/05/25 22:04 80 ml ONCE ONE Administration Ketorolac Tromethamine 15 mg 05/05/25 21:17 05/05/25 21:27 Ketorolac 30mg/Ml Vial IV 05/05/25 21:18 15 mg ONCE ONE Administration Ondansetron HCl 4 mg 05/05/25 21:17 05/05/25 21:27 Ondansetron 4mg/2ml Vial IV 05/05/25 21:18 4 mg ONCE ONE Administration Sodium Chloride 40 ml 05/05/25 22:03 05/05/25 22:04 0.9 % Sodium Chloride 50 Ml Vial IV 05/05/25 22:04 40 ml ONCE ONE Administration Sodium Chloride 10 ml 05/05/25 22:03 05/05/25 22:04 Sodium Chloride 0.9% 10ml Syr (Rad Only) IV 06/04/25 22:02 10 ml NEEDED PRN Administration Maintain IV Site ORDERS Category Date Time Status CT abdomen pelvis w con Stat Cat Scan 05/05/25 21:[address] angio chest PE protocol Stat Cat Scan 05/05/25 21:55 Completed XR chest portable Stat Exams 05/05/25 21:17 Completed Complete Blood Count Auto Diff Stat Lab 05/05/25 21:35 Completed Comprehensive Metabolic Panel Stat Lab 05/05/25 21:35 Completed D-Dimer Stat Lab 05/05/25 21:35 Completed Drug Screen,Urine Stat Lab 05/05/25 21:31 Completed Lactic Acid Stat Lab 05/05/25 22:12 Completed Lipase Stat Lab 05/05/25 21:35 Completed NT Pro Brain Natriuretic Pep. Stat Lab 05/05/25 21:35 Completed Troponin I Stat Lab 05/05/25 21:35 Completed Urinalysis and Microscopic Stat Lab 05/05/25 21:30 Completed Urine , HCG Qual. Stat Lab 05/05/25 21:31 Completed Medical Decision Narrative: 29-year-old female presents to the emergency department with left-sided flank pain/rib pain, with some radiation to her abdomen nausea for 2 days, differential diagnose include but not limited to, pancreatitis, diverticulitis, acute UTI, acute pyelonephritis, nephrolithiasis, ureterolithiasis, pneumonia, cardiac arrhythmia, electrolyte disturbance, ACS, costochondritis, pneumonia, PE, other musculoskeletal sprain/strain, pneumothorax, colitis, ileitis, gastritis among others. Will obtain basic laboratory studies, CXR, EKG, UDS lipase lactate proBNP troponin urinalysis, obtain CT of the pelvis with contrast, CTA chest with and without contrast PE protocol, give 15 mg IV Toradol and 4 mg IV Zofran for pain and nausea. Will obtain urine hCG. CBC unremarkable hCG qualitative negative I discussed this patient's case with the attending physician at shift change she will be assuming amended the patient's care/workup, disposition is pending laboratory studies and imaging studies. Roopa Shelton, DO I assumed care of this patient at 2200 Patient's labs were reviewed and interpreted by myself: CBC showed no leukocytosis, hemoglobin was stable. CMP was unremarkable. Dimer mildly elevated at 0.70. Lactate normal. Initial troponin less than 0.01. Lipase normal. UA with trace bacteria occasional white blood cells negative leukoesterase, negative nitrites. test negative. Urine drug screen negative. Patient CT scans including chest and abdomen were reviewed and interpreted by myself and showed no acute pathology. Patient symptoms did improve in the emergency department and therefore at this time I felt the patient was appropriate for discharge home. Patient was given return precautions. Patient's urine was not treated at this time given that patient was not have any urinary symptoms. Critical Care <PORSHA Guardado - Last Filed: 05/05/25 21:56> Critical Care Time Critical Care Time: No
[2025-05-05 21:15] VITALS: BP 98/79; PULSE 88; RESP 20; TEMP 36.7; O2SAT 100; BMI 39.3
--- NOTE | 2025-05-05 21:16 | ECG_ITS ---
APPROVED REPORT Exam: Resting ECG HR:76 bpm ECG Measurements Heart Rate 76 AXES NM 118 P 53 QRSd 92 QRS 51 QT 371 T 58 QTc 401 Conclusion Normal sinus rhythm at [address] or T wave changes concerning for ischemia Electronically signed by : Roopa Shelton, 05/14/2025 00:16:16
--- NOTE | 2025-05-05 21:16 | CT_ITS ---
PROCEDURE INFORMATION: Exam: CT Abdomen And Pelvis With Contrast Exam date and time: 05/05/2025 10:03 PM Age: 29 years old Clinical indication: Nausea; Additional info: Left flank pain, nausea TECHNIQUE: Imaging protocol: Computed tomography of the abdomen and pelvis with contrast. 3D rendering (Not supervised by radiologist): MIP and/or 3D reconstructed images were created by the technologist. Radiation optimization: All CT scans at this facility use at least one of these dose optimization techniques: automated exposure control; mA and/or kV adjustment per patient size (includes targeted exams where dose is matched to clinical indication); or iterative reconstruction. Contrast material: ISOVUE; Contrast volume: 80 ml; Contrast route: IV; COMPARISON: CT ABDOMEN PELVIS W CON 12/02/2024 10:32 PM FINDINGS: Lower thorax: See chest CT report for additional details. Liver: Fatty infiltration. Gallbladder and biliary ducts: No calcified stones. No ductal dilation. Pancreas: Unremarkable. No ductal dilation. Spleen: No splenomegaly. Adrenal glands: No mass. Kidneys and ureters: Unremarkable. No significant hydronephrosis. Stomach and bowel: No definite mural thickening. No obstruction. Appendix: No findings to suggest appendicitis. Intraperitoneal space: No significant fluid collection. No definite free air. Vasculature: Unremarkable. No aneurysm. Lymph nodes: No pathologically enlarged lymph nodes. Urinary bladder: Unremarkable. Reproductive: Unremarkable as visualized. Bones/joints: No acute fracture. Soft tissues: Tiny umbilical hernia containing fat. IMPRESSION: 1. No definite acute intraabdominal abnormality. 2. See chest CT report for additional details.
--- NOTE | 2025-05-05 21:17 | XR_ITS ---
PROCEDURE INFORMATION: Exam: XR Chest Exam date and time: 05/05/2025 10:07 PM Age: 29 years old Clinical indication: Pain; Shortness of breath; Left-sided; Additional info: SOA left-sided rib pain TECHNIQUE: Imaging protocol: Radiologic exam of the chest. Views: 1 view. COMPARISON: CT ANGIO CHEST PE PROTOCOL 05/05/2025 10:03 PM FINDINGS: Limitations: Suboptimal positioning. Radiographic technique - mild to moderate. Lungs: No definite consolidation. Pleural spaces: No significant pleural effusion. No pneumothorax. Heart/Mediastinum: Apparent borderline cardiomegaly. Bones/joints: No displaced fracture. Soft tissues: Unremarkable. IMPRESSION: Apparent borderline cardiomegaly.
[2025-05-05] MEDS: KETOROLAC 30MG/ML VIAL 15 MG IV (21:27)
[2025-05-05] MEDS: ONDANSETRON 4MG/2ML VIAL 4 MG IV (21:27)
[2025-05-05 21:38] LABS: Microscopic, Urine URINE MICROSCOPIC (MICROSCOPIC)
[2025-05-05 21:42] LABS: Hematocrit 38.2 % (37.0-47.0); Hemoglobin 12.6 g/dL (12.2-16.2); Immature Granulocytes % 0.2 %; Mean Corpuscular HGB Conc 33.0 g/dL (31.8-35.4); Mean Corpuscular Hemoglobin 26.8 pg (27.0-31.2); Mean Corpuscular Volume 81.3 fl (81-99); Nucleated Red Blood Cells % 0 %; Platelet Count 274 K/mm3 (142-424); Red Blood Count 4.70 M/mm3 (4.20-5.40); Red Cell Distribution Width-SD 38.7 fL; White Blood Count 8.0 K/mm3 (4.8-10.8)
[2025-05-05 21:42] LABS: Bilirubin,Urine Negative (Negative); Color,Urine YELLOW (Yellow); Glucose,Urine (UA) Negative (Negative); Ketones,Urine Negative (Negative); Leukocyte Esterase,Urine Negative (Negative); PH,Urine 6.5 (5.0-8.5); Protein,Urine Negative (Negative); Specific Gravity, Urine 1.025 (1.005-1.030); Urobilinogen,Urine 1.0 EU/dl (0.2)
[2025-05-05 21:45] LABS: Urine Pregnancy, HCG Qual. Negative (Negative)
[2025-05-05 21:52] VITALS: BP 139/93; PULSE 80; O2SAT 98
[2025-05-05 21:54] LABS: Alanine Aminotransferase 37 U/L (12-78); Albumin Level 4.6 g/dl (3.5-5.0); Albumin/Globulin Ratio 1.4 (1.1-1.8); Alkaline Phosphatase 82 U/L (38-126); Anion Gap 12.7 mEq/L (5-15); Aspartate Amino Transferase 29 U/L (14-36); Bilirubin,Total 0.4 mg/dl (0.2-1.3); Blood Urea Nitrogen 13 mg/dl (7-17); Calcium 9.1 mg/dl (8.4-10.2); Carbon Dioxide 28 mmol/L (22.0-30.0); Chloride 105 mmol/L (98-107); Creatinine Clearance Estimated 130 mL/min (50-200); Creatinine,Serum 1.00 mg/dl (0.52-1.04); Estimated Glomerular Filt Rate 67 ml/min (>60); GFR (African American) 80 ML/MIN (>60); Globulin 3.4 g/dL (1.3-3.2); Glucose 91 mg/dl (74-100); Lipase 37 U/L (23-300); Potassium 3.7 mmoL/L (3.5-5.1); Sodium 142 mmol/L (136-145); Total Protein,Serum 8.0 g/dl (6.3-8.2)
--- NOTE | 2025-05-05 21:55 | CT_ITS ---
PROCEDURE INFORMATION: Exam: CTA Chest With Contrast Exam date and time: 05/05/2025 10:03 PM Age: 29 years old Clinical indication: Pain; Shortness of breath; Left-sided; Additional info: SOA left sided pleuritic cp TECHNIQUE: Imaging protocol: Computed tomographic angiography of the chest with contrast. Exam focused on the arteries. 3D rendering (Not supervised by radiologist): MIP and/or 3D reconstructed images were created by the technologist. Radiation optimization: All CT scans at this facility use at least one of these dose optimization techniques: automated exposure control; mA and/or kV adjustment per patient size (includes targeted exams where dose is matched to clinical indication); or iterative reconstruction. Contrast material: ISOUVE 370; Contrast volume: 80 ml; Contrast route: INTRAVENOUS (IV); COMPARISON: CT ANGIO CHEST PE PROTOCOL 08/31/2022 4:15 AM FINDINGS: Limitations: Suboptimal timing of bolus/opacification. Pulmonary arteries: No definite pulmonary embolism. Aorta: Unremarkable. No aneurysm. Lungs: No consolidation. Calcified granuloma within LEFT lower lobe. Pleural spaces: No significant pleural effusion. No pneumothorax. Heart: Mild cardiomegaly. No significant pericardial effusion. Lymph nodes: Calcified hilar lymph nodes. Bones/joints: No acute fracture. Soft tissues: Unremarkable. Upper abdomen: See abdomen CT report for additional details. IMPRESSION: 1. No definite CT evidence of pulmonary embolism. 2. See abdomen CT report for additional details.
[2025-05-05 21:58] LABS: Barbiturates Screen,Urine Negative ng/ml (<200)
[2025-05-05 21:59] LABS: D-Dimer 0.70 ug/mL (0.0-0.5)
[2025-05-05 21:59] LABS: Amphetamine/Metha Screen,Urine Negative ng/ml (<1000); Benzodiazepines Screen,Urine Negative ng/ml (<200)
[2025-05-05 22:01] LABS: Methadone Screen,Urine Negative ng/ml (<300)
[2025-05-05 22:02] LABS: Opiate Screen,Urine Negative ng/ml (<300)
[2025-05-05 22:03] LABS: Phencyclidine Screen,Urine Negative ng/ml (<25)
[2025-05-05] MEDS: SODIUM CHLORIDE 0.9% 10ML SYR (RAD ONLY) 10 ML IV (22:04)
[2025-05-05] MEDS: 0.9 % SODIUM CHLORIDE 50 ML VIAL 40 ML IV (22:04)
[2025-05-05] MEDS: IOPAMIDOL-370 (76%);100ML BOTTLE 80 ML IV (22:04)
[2025-05-05 22:08] LABS: NT Pro Brain Natriuretic Pep. 79.9 pg/mL (0-125)
[2025-05-05 22:14] LABS: Troponin I < 0.01 ng/ml (0.00-0.034)
[2025-05-05 23:47] LABS: Bacteria,Urine Trace /lpf; Squamous Epithelial Cell,Urine Occasional #/hpf (0-5); WBC,Urine Occasional #/hpf (0-3)
[2025-05-05 23:55] VITALS: BP 102/60; PULSE 68; RESP 14; TEMP 36.6; O2SAT 97
== END 2025-05-06 00:02 | disposition home or self-care (01) ==
PROVIDERS: Physician Assistant; Emergency Provider Student in an Organized Health Care Education/Training Program; PCP Physician Assistant
DX: R10.9 Unspecified abdominal pain (principal); R07.81 Pleurodynia
CPT/HCPCS: 71045; 71275; 74177; 80053; 80307; 81001; 81025; 83605; 83690; 83880; 84484; 85025; 85378; 93005; 96374; 96375; 99284; 99285; J1885; J2405; Q9967